=== PATIENT | male | born 1950 | race Caucasian/White ===

== ENCOUNTER 2017-03-13 06:17 | Day surgery (SDC) | payer OTHER ==
[~2017-03-13] VITALS: Ht 182.9 cm; Wt 78.6 kg
[2017-03-13 06:41] VITALS: BP 117/65; PULSE 92; RESP 18; TEMP 98; O2SAT 100
[2017-03-13] MEDS ORDERED: SPIR25TA PO (06:43)
[2017-03-13] MEDS ORDERED: DIGO1TAB59 PO (06:43)
[2017-03-13] MEDS ORDERED: BUME1TAB PO (06:43)
[2017-03-13] MEDS ORDERED: METO50TA11 PO (06:43)
[2017-03-13] MEDS ORDERED: HYDR500C PO (06:43)
[2017-03-13] MEDS ORDERED: XARE20TA PO (06:44)
[2017-03-13] MEDS ORDERED: VANCOMYCIN 1000 MG/NS 250 ML - implanted port/tunneled catheter IV SCH ×2 (07:00)
[2017-03-13] MEDS ORDERED: CHLORHEXIDINE GLUCONATE 2 % 1 PACK (2 CLOTHS) TOPICAL SCH (07:00)
[2017-03-13] MEDS ORDERED: POVIDONE IODINE 5% (ANTISEPSIS KIT) 4 APPLICATIONS EACH NARE SCH (07:00)
[2017-03-13] MEDS ORDERED: ceFAZolin 2 GM PREMIX 50 ML - implanted port/tunneled catheter insertion IV SCH (07:00)
[2017-03-13] MEDS ORDERED: fentaNYL CITRATE 250 MCG/5 ML AMP ONE (08:04)
[2017-03-13] MEDS ORDERED: MIDAZOLAM HCL 5 MG/5 ML VIAL ONE (08:04)
[2017-03-13] MEDS ORDERED: LIDOCAINE 1%/EPINEPHrine 1:100,000 SOLN 20 ML VIAL ONE (08:23)
--- NOTE | 2017-03-13 08:59 | PD.RAD ---
Post Procedure Progress Note Pre Procedure Diagnosis: (1) Thrombocytopenia Post Procedure Diagnosis: (1) Thrombocytopenia Procedure Date: Mar 13, 2017 Supervising Radiologist: Rajesh Garcia Proceduralist/Assist: Brayden Marc, RT(R), Other Estimated blood loss: < 5 ml Plan of Activity Patient to Unit: ROPU Patient Condition: Good Additional Comments: tip at [facility]. Ready for use. See PACS Report for procedural detail/treatment Rajesh Garcia MD Mar 13, 2017 08:59
[2017-03-13] MEDS ORDERED: SODIUM CHLORIDE 0.9% FLUSH 10 ML FLUSH IVF PRN (09:00)
[2017-03-13 09:15] VITALS: BP 117/65; PULSE 109; RESP 18; TEMP 97.8; O2SAT 100
[2017-03-13 09:30] VITALS: BP 124/59; PULSE 114; RESP 18; O2SAT 95
--- NOTE | 2017-03-13 09:59 | RADRPT ---
EXAM DATE/TIME: 03/13/2017 08:19 [facility] COMPARISON: No previous studies available for comparison. INDICATIONS : Patient with Myelofibrosis with essential thrombocytosis,CHELA-2 positive. MEDICAL HISTORY : 1.A- fib with RVR 2.splenomegaly 3. Leukocytosis 4.cataracts SURGICAL HISTORY : 1.Bone marrrow bx ENCOUNTER: Initial ACUITY: 4-6 months PAIN SCORE: 0/10 FLUORO TIME: 0.2 minutes IMAGE SERIES: 0 SEDATION TIME: 30 minutes ACCESS: Right internal jugular vein SEDATION: 1.) 2.5 mg midazolam (Versed) IV 2.) 125 mcg fentanyl (Sublimaze) IV Prophylactic antibiotics were administered with appropriate pre-procedure timing. Vancomycin within 2 hours of procedure, Ancef (or alternative) within 1 hour of procedure. DEVICE: 1. 8 Vietnamese single lumen Ang[employer] power port PROCEDURE : 1. Continuous pulse oximetry and EKG monitoring. 2. Intravenous conscious sedation. 3. Ultrasound guidance for venous access. 4. Fluoroscopic guided implantable central venous port placement. The patient was placed supine. The neck was prepped in sterile fashion. Full sterile technique was u sed, including cap, mask, sterile gloves and gown, and a large sterile sheet. Hand hygiene and 2% ch lorhexidine Betadine was utilized per protocol for cutaneous antisepsis with appropriate dry time for site. The skin and subcutaneous tissues were infiltrated with local anesthetic solution. Under direct ultrasound guidance, central venous access was accomplished in the targeted vessel. The ultrasound images depicting access guidance were stored and saved to PACS for permanent record. A s ubcutaneous pocket was created using blunt dissection. The port was introduced to the pocket. The c atheter tubing was fed through a subcutaneous tunnel to the venotomy site. The catheter tubing was c ut to a suitable length and then was introduced through a valved Peel-Away sheath and positioned with catheter tubing tip at the cavo-atrial junction level. The pocket incision was closed with subcutic ular Vicryl suture. Steri-Strips were applied. The port was flushed and locked with heparin solutio n per protocol. Sterile dressing was applied to the site. The patient tolerated the procedure well. Conscious sedation was performed with the prescribed dosages and duration as above in the presence of an independent trained radiology nurse to assist in the monitoring of the patient. EKG and oximetry remained stable throughout the procedure. The patient tolerated the procedure well and there were no complications. The patient was sent to post anesthesia recovery in stable condition. CONCLUSION: Uncomplicated ultrasound and fluoroscopic guided implanted central venous port catheter placement as described in detail above. An 8 Vietnamese Power port was placed. Rajesh Garcia MD on March 13, 2017 at 9:56 Board Certified Radiologist. This report was verified electronically.
[2017-03-13 10:00] VITALS: BP 96/54; PULSE 100; RESP 18; O2SAT 97
[2017-03-13 10:30] VITALS: BP 104/58; PULSE 100; RESP 18; O2SAT 97
== END 2017-03-13 10:44 | disposition home or self-care (01) ==
LOC: HROP 06:17 → HRIP 06:24 → HROP 10:44
PROVIDERS: ATTEND Internal Medicine
DX: D75.81 Myelofibrosis (principal); D47.3 Essential (hemorrhagic) thrombocythemia; I48.91 Unspecified atrial fibrillation
CPT/HCPCS: 36561; 76937; 77001; 99152; 99153; C1788; J0690; J1642; J2250; J3010; J3370; J7050

== ENCOUNTER 2017-09-16 14:30 | Inpatient (IN) | payer OTHER, MEDICARE ==
[~2017-09-16] VITALS: Ht 182.9 cm; Wt 74.1 kg
[2017-09-16] VITALS (9 sets, daily range): BP systolic 123–140; BP diastolic 56–67; PULSE 87–117; RESP 16–20; TEMP 99.1–102.3; O2SAT 94–100
[~2017-09-16 14:30] MED LIST: BUME1TAB PO; DIGO1TAB59 PO; HYDR500C PO; METO1TAB9 PO; SPIR25TA PO; XARE20TA PO
[2017-09-16] MEDS ORDERED: ASPI81CH6 CHEW (14:59)
[2017-09-16] MEDS ORDERED: SPIR25 PO (14:59)
--- NOTE | 2017-09-16 15:01 | PD ---
HPI Chief Complaint: Abdominal Pain Time Seen by Provider: 14:41 Travel History International Travel<30 days: No Contact w/Intl Traveler<30days: No Traveled to known affect area: No History of Present Illness HPI Patient is a 67-year-old male on chemotherapy with Dr. Martinez for myeloproliferative disorder on oral chemotherapy at home presents emergency department for abdominal discomfort and mild distention as well as some diarrhea. Patient also noticed that he was having fever at home, recently received a blood transfusion and has low platelets as well. Patient states is just generally not feeling well, took some Tylenol prior to arrival. States symptoms are mild, gradually worsening, context as above, not associated with any chest pain or shortness of breath PFSH Past Medical History Cancer: Yes (BONE MARROW, mpn ) Cardiovascular Problems: Yes (AFIB) Diabetes: No Endocrine: No Genitourinary: No Hepatitis: No Hiatal Hernia: No Immune Disorder: No Musculoskeletal: No Neurologic: No Psychiatric: No Reproductive: No Respiratory: No Thyroid Disease: No ?: Not Past Surgical History Abdominal Surgery: No AICD: No Cardiac Surgery: No Ear Surgery: No Endocrine Surgery: No Eye Surgery: Yes (CATARACT) Genitourinary Surgery: No Gynecologic Surgery: No Joint Replacement: No Oral Surgery: No Pacemaker: No Thoracic Surgery: No Other Surgery: Yes (port surgery ) Social History Alcohol Use: Yes (couple glasses wine a night) Tobacco Use: No Substance Use: No Allergies-Medications (Allergen,Severity, Reaction): Coded Allergies: No Known Allergies (Unverified Adverse Reaction, Unknown, 09/16/17) Reported Meds & Prescriptions Reported Meds & Active Scripts Active Reported [jakafi] 20 Mg PO EVERY OTHER DAY Aspirin Low Dose (Aspirin) 81 Mg Chew 81 Mg CHEW BID Aldactone (Spironolactone) 25 Mg Tab 25 Mg PO DAILY Digitek (Digoxin) 0.125 Mg Tab 0.125 Mg PO DAILY Review of Systems Except as stated in HPI: all other systems reviewed are Neg Physical Exam Narrative GENERAL: Well-developed well-nourished, quite pleasant in no obvious distress, pale. SKIN: Focused skin assessment warm/dry. HEAD: Atraumatic. Normocephalic. EYES: Pupils equal and round. No scleral icterus. No injection or drainage. ENT: No nasal bleeding or discharge. Mucous membranes pink and moist. NECK: Trachea midline. No JVD. CARDIOVASCULAR: Regular rate and rhythm. No murmur appreciated. RESPIRATORY: No accessory muscle use. Clear to auscultation. Breath sounds equal bilaterally. GASTROINTESTINAL: Abdomen soft, non-tender, perhaps mild distention, no rebound no percussive tenderness abdomen is fairly benign.. Hepatic and splenic margins not palpable. MUSCULOSKELETAL: No obvious deformities. No clubbing. No cyanosis. No edema. NEUROLOGICAL: Awake and alert. No obvious cranial nerve deficits. Motor grossly within normal limits. Normal speech. PSYCHIATRIC: Appropriate mood and affect; insight and judgment normal. Data Data Last Documented VS Vital Signs Date Time Temp Pulse Resp B/P (MAP) Pulse Ox O2 Delivery O2 Flow Rate FiO2 09/16/17 19:06 16 09/16/17 18:40 99.8 09/16/17 18:28 87 100 Nasal Cannula 2.00 Orders Orders Sepsis Workup Initiated (09/16/17 ) Complete Blood Count With Diff (09/16/17 14:42) Comprehensive Metabolic Panel (09/16/17 14:42) Prothrombin Time / Inr (Pt) (09/16/17 14:42) Act Partial Throm Time (Ptt) (09/16/17 14:42) Lactic Acid Sepsis Protocol (09/16/17 14:42) Magnesium (Mg) (09/16/17 14:42) Phosphorus (Po4) (09/16/17 14:42) Lipase (09/16/17 14:42) Ckmb (Isoenzyme) Profile (09/16/17 14:42) Troponin I (09/16/17 14:42) Urinalysis - C+S If Indicated (09/16/17 14:42) Blood Culture (09/16/17 14:42) Chest, Single Ap (09/16/17 14:42) Ecg Monitoring (09/16/17 14:42) Iv Access Insert/Monitor (09/16/17 14:42) Oximetry (09/16/17 14:42) Oxygen Administration (09/16/17 14:42) Digoxin (09/16/17 15:00) Influenzae A/B Antigen (09/16/17 15:00) Ct Abd/Pel W Iv Contrast(Rout) (09/16/17 ) Urine Culture (09/16/17 16:13) Iohexol 350 Inj (Omnipaque 350 Inj) (09/16/17 17:40) Cefepime Inj (Maxipime Inj) (09/16/17 19:45) Sodium Chlor 0.9% 1000 Ml Inj (Ns 1000 M (09/16/17 19:45) Admit Order (Ed Use Only) (09/16/17 ) Labs Laboratory Tests Test 09/16/17 15:10 09/16/17 16:13 White Blood Count 43.6 TH/MM3 Red Blood Count 2.55 MIL/MM3 Hemoglobin 8.7 GM/DL Hematocrit 26.0 % Mean Corpuscular Volume 102.1 FL Mean Corpuscular Hemoglobin 34.3 PG Mean Corpuscular Hemoglobin Concent 33.6 % Red Cell Distribution Width 20.1 % Platelet Count 43 TH/MM3 Mean Platelet Volume 11.0 FL Neutrophils (%) (Auto) 83.0 % Lymphocytes (%) (Auto) 10.4 % Monocytes (%) (Auto) 6.0 % Eosinophils (%) (Auto) 0.6 % Basophils (%) (Auto) 0.0 % Neutrophils # (Auto) 36.2 TH/MM3 Lymphocytes # (Auto) 4.5 TH/MM3 Monocytes # (Auto) 2.6 TH/MM3 Eosinophils # (Auto) 0.3 TH/MM3 Basophils # (Auto) 0.0 TH/MM3 CBC Comment AUTO DIFF Differential Total Cells Counted 100 Neutrophils % (Manual) 79 % Band Neutrophils % 4 % Lymphocytes % 7 % Monocytes % 3 % Neutrophils # (Manual) 39.2 TH/MM3 Myelocytes 6 % Promyelocytes 1 % Nucleated Red Blood Cells 19 /100 WBC Differential Comment FINAL DIFF MANUAL Platelet Estimate LOW Platelet Morphology Comment ENLARGED Polychromasia 2.1 % Prothrombin Time 12.1 SEC Prothromb Time International Ratio 1.2 RATIO Activated Partial Thromboplast Time 34.9 SEC Blood Urea Nitrogen 32 MG/DL Creatinine 1.24 MG/DL Random Glucose 118 MG/DL Total Protein 6.5 GM/DL Albumin 3.5 GM/DL Calcium Level 8.5 MG/DL Phosphorus Level 2.5 MG/DL Magnesium Level 2.1 MG/DL Alkaline Phosphatase 254 U/L Aspartate Amino Transf (AST/SGOT) 529 U/L Alanine Aminotransferase (ALT/SGPT) 29 U/L Total Bilirubin 1.9 MG/DL Sodium Level 136 MEQ/L Potassium Level 4.1 MEQ/L Chloride Level 105 MEQ/L Carbon Dioxide Level 22.0 MEQ/L Anion Gap 9 MEQ/L Estimat Glomerular Filtration Rate 58 ML/MIN Lactic Acid Level 1.5 mmol/L Total Creatine Kinase 76 U/L Troponin I 0.02 NG/ML Lipase 71 U/L Digoxin Level 1.0 NG/ML Urine Color DARK-RED Urine Turbidity HAZY Urine pH 6.0 Urine Specific [place] 1.016 Urine Protein 100 mg/dL Urine Glucose (UA) NEG mg/dL Urine Ketones 10 mg/dL Urine Occult Blood LARGE Urine Nitrite NEG Urine Bilirubin NEG Urine Urobilinogen LESS THAN 2.0 MG/DL Urine Leukocyte Esterase SMALL Urine WBC 17 /hpf Urine Squamous Epithelial Cells 2 /hpf Urine Amorphous Sediment OCC Urine Granular Casts 58 /lpf Microscopic Urinalysis Comment CULTURE INDICATED MDM Medical Decision Making Medical Screen Exam Complete: Yes Emergency Medical Condition: Yes Differential Diagnosis Sepsis, abdominal pain, diarrhea, dehydration, influenza, pneumonia. Narrative Course Patient roomed emergency department, appears chronically ill but nontoxic at this time, febrile on arrival to 102.3. Does have hematuria, CAT scan showing splenic infarct, AST elevation to 500 which is new for him. Discussed at length with Dr. Barrera, with the fever and the elevation in AST is possible that he has infarct of the liver as well recommended hepatitis panel admission for 48 hours of cefepime and blood cultures. Fever getting better, remained tachycardic and only so. Discussed with Dr. Liz for admission and she is agreeable. Patient does have Sirs, suspected bacteremia but lactic acid normal, this negates the necessity for aggressive fluid resuscitation. Diagnosis Primary Impression: SIRS (systemic inflammatory response syndrome) Additional Impression: Sepsis Admitting Information Admitting Physician Requests: Admit Condition: Stable Hernan Head MD Sep 16, 2017 15:01
[2017-09-16] MEDS ORDERED: jakafi PO (15:28)
[2017-09-16 15:41] LABS: INTERNATIONAL NORMALIZED RATIO 1.2 RATIO; PROTHROMBIN TIME - PATIENT 12.1 SEC (9.8-11.6)
[2017-09-16 15:44] LABS: AUTOMATED NEUTROPHIL # 36.2 TH/MM3 (1.8-7.7); EOSINOPHIL # 0.3 TH/MM3 (0-0.4); EOSINOPHIL % 0.6 % (0.0-4.0); HEMOGLOBIN 8.7 GM/DL (13.0-17.0); LYMPH % 10.4 % (9.0-44.0); LYMPHOCYTE # 4.5 TH/MM3 (1.0-4.8); MEAN CELL VOLUME 102.1 FL (80.0-100.0); MEAN CORPUSCULAR HEMOGLOBIN 34.3 PG (27.0-34.0); MEAN CORPUSCULAR HGB CONC 33.6 % (32.0-36.0); MONOCYTE # 2.6 TH/MM3 (0-0.9); PLATELET COUNT 43 TH/MM3 (150-450); RED BLOOD COUNT 2.55 MIL/MM3 (4.50-5.90); RED CELL DISTRIBUTION WIDTH 20.1 % (11.6-17.2); WHITE BLOOD COUNT 43.6 TH/MM3 (4.0-11.0)
[2017-09-16 16:01] LABS: ALBUMIN 3.5 GM/DL (3.4-5.0); ALKALINE PHOSPHATASE 254 U/L (45-117); ALT (GPT) 29 U/L (12-78); AST (GOT) 529 U/L (15-37); BLOOD UREA NITROGEN 32 MG/DL (7-18); CALCIUM 8.5 MG/DL (8.5-10.1); CHLORIDE 105 MEQ/L (98-107); CREATININE 1.24 MG/DL (0.60-1.30); GLOMERULAR FILTRATION RATE 58 ML/MIN (>89); GLUCOSE,RANDOM 118 MG/DL (74-106); LIPASE 71 U/L (73-393); MAGNESIUM 2.1 MG/DL (1.5-2.5); PHOSPHORUS 2.5 MG/DL (2.5-4.9); SODIUM (NA) 136 MEQ/L (136-145); TOTAL BILIRUBIN ADULT 1.9 MG/DL (0.2-1.0); TOTAL PROTEIN 6.5 GM/DL (6.4-8.2); TROPONIN I 0.02 NG/ML (0.02-0.05)
--- NOTE | 2017-09-16 16:12 | RADRPT ---
EXAM DATE/TIME: 09/16/2017 15:15 [facility] COMPARISON: No previous studies available for comparison. INDICATIONS : Lightheaded and fever symptoms. MEDICAL HISTORY : Carcinoma, bone marrow. SURGICAL HISTORY : Port placement. ENCOUNTER: Initial ACUITY: 1 day PAIN SCORE: 0/10 LOCATION: Bilateral chest FINDINGS: Single AP view of the chest. Right-sided [id number] in place. Linear atelectasis at the right uppe r lung zone. The lungs are otherwise clear. Cardiomediastinal silhouette within normal limits. No jb dence of pleural effusion or pneumothorax. CONCLUSION: Right upper lung atelectasis. No other acute cardiopulmonary disease identified. Mike Zhou MD on September 16, 2017 at 16:10 Board Certified Radiologist. This report was verified electronically.
[2017-09-16 16:28] LABS: BANDS 4 % (0-6); CORRECTED NUCLEATED RBC 19 /100 WBC (0-0); LYMPHOCYTES 7 % (9-44); MONOCYTES 3 % (0-8); MYELOCYTES 6 % (0-0); NEUTROPHIL # MANUAL DIFF 39.2 TH/MM3 (1.8-7.7); NUCLEATED RED BLOOD CELL 19 (0-0); POLYS (SEG NEUTROPHILS) 79 % (16-70); PROMYELOCYTES 1 % (0-0)
[2017-09-16 16:32] LABS: POLYCHROMASIA 2.1 % (0.0-1.9)
[2017-09-16 16:39] LABS: AMORPHOUS SEDIMENT, URINE OCC; BILIRUBIN, URINE NEG (NEG); BLOOD, URINE LARGE (NEG); GLUCOSE,URINE NEG (NEG); KETONE, URINE 10 mg/dL (NEG); NITRITE,URINE NEG (NEG); SQUAMOUS EPITHELIAL CELL URINE 2 /hpf (0-5); URINE LEUKOCYTE ESTERASE SMALL (NEG)
[2017-09-16 16:40] LABS: URINE COLOR DARK-RED (YELLW/STRAW)
[2017-09-16] MEDS ORDERED: IOHEXOL 350 MG/ML 10 ML VIAL (for RAD DIAG) IVCONTRAST ONE (17:40)
--- NOTE | 2017-09-16 18:25 | RADRPT ---
EXAM DATE/TIME: 09/16/2017 17:26 [facility] COMPARISON: No previous studies available for comparison. INDICATIONS : Fever, abdominal pain, and diarrhea. IV CONTRAST: 100 cc Omnipaque 350 (iohexol) IV ORAL CONTRAST: No oral contrast ingested. RADIATION DOSE: 7.04 CTDIvol (mGy) MEDICAL HISTORY : Cardiovascular disease. Carcinoma, bone marrow. SURGICAL HISTORY : None. ENCOUNTER: Initial ACUITY: 2 days PAIN SCALE: 5/10 LOCATION: abdomen TECHNIQUE: Volumetric scanning of the abdomen and pelvis was performed. Using automated exposure control and ad justment of the mA and/or kV according to patient size, radiation dose was kept as low as reasonably achievable to obtain optimal diagnostic quality images. DICOM format image data is available electro nically for review and comparison. FINDINGS: LOWER LUNGS: The visualized lower lungs are clear. LIVER: Hepatomegaly measuring 20 cm in craniocaudal dimension. No focal mass. Gallbladder unremarkable. SPLEEN: Marked splenomegaly with the spleen measuring 21 cm in craniocaudal dimension. There is heterogeneous enhancement of the spleen with large areas of relative hypodensity. This finding likely represents l arge areas of splenic infarct. Adjacent edema is seen in the fat. PANCREAS: Within normal limits. KIDNEYS: Normal in size and shape. There is no mass, stone or hydronephrosis. ADRENAL GLANDS: Within normal limits. VASCULAR: There is no aortic aneurysm. BOWEL/MESENTERY: No evidence of bowel dilatation. No free air. Small amount of free fluid. Appendix within normal limi ts. ABDOMINAL WALL: Within normal limits. RETROPERITONEUM: There is no lymphadenopathy. BLADDER: No wall thickening or mass. REPRODUCTIVE: Within normal limits. INGUINAL: There is no lymphadenopathy or hernia. MUSCULOSKELETAL: Within normal limits for patient age. CONCLUSION: 1. Marked splenomegaly with large contiguous areas of hypodensity in the spleen likely representing l arge areas of infarct. Splenic vein is patent. Splenic artery is patent. 2. Small amount of free fluid. 3. Hepatomegaly. Mike Zhou MD on September 16, 2017 at 18:16 Board Certified Radiologist. This report was verified electronically.
[2017-09-16] MEDS ORDERED: CEFEPIME INJ 1,000 MG in SODIUM CHLORIDE 0.9% INJ 100 ML IV ONE (19:45)
[2017-09-16] MEDS ORDERED: SODIUM CHLOR 0.9% 1000 ML INJ 1,000 ML IV ONE (20:00)
[2017-09-16] MEDS ORDERED: SENNOSIDES 8.6 MG TAB PO PRN (20:00)
[2017-09-16] MEDS ORDERED: NALOXONE HCL 0.4 MG/ML AMP IV PUSH PRN (20:00)
[2017-09-16] MEDS ORDERED: MAGNESIUM HYDROXIDE SUSP 30 ML CUP PO PRN (20:00)
[2017-09-16] MEDS ORDERED: ACETAMINOPHEN 325 MG TAB PO PRN (20:00)
[2017-09-16] MEDS ORDERED: BISACODYL 10 MG SUPP RECTAL PRN (20:00)
[2017-09-16] MEDS ORDERED: SODIUM CHLORIDE 0.9% FLUSH 10 ML FLUSH IV FLUSH PRN (20:00)
[2017-09-16] MEDS ORDERED: ONDANSETRON HCL 4 MG/2 ML VIAL IVP PRN (20:00)
--- NOTE | 2017-09-16 20:31 | HHI.HP ---
[facility] Primary Care Physician Non-Staff Admission Diagnosis SIRS/Suspected Bacteremia. Diagnoses: Travel History International Travel<30 Days: No Contact w/Intl Traveler <30 Da: No Traveled to Known Affected Are: No History of Present Illness 67-year-old male with a past medical history significant for myeloproliferative disorder followed by Dr. Cheema, thrombocytopenia and atrial fibrillation presents to the emergency department with hematuria and a fever to 103 that began this morning. The patient reports a 2 day history of anorexia and left- sided abdominal pain since Sunday. Patient has a history of splenomegaly. He also has a newly elevated AST of 529. UA consistent with urinary tract infection. CT of the abdomen/pelvis showed splenomegaly with large area of infarct with patent splenic vein/artery. Also shows hepatomegaly. Chest x-ray with right upper lung atelectasis. WBC 43.6 which is baseline for the patient. Platelets 43. Review of Systems Positive fever Denies blurry vision, otorrhea, rhinorrhea Denies sore throat and cough No chest pain, palpitations, shortness of breath Positive abdominal pain Denies constipation/diarrhea/nausea/vomiting Denies muscle pain/weakness No rashes Past Family Social History Past Medical History Atrial fibrillation, was on Xarelto until 3 weeks ago when this was stopped for his thrombocytopenia Myeloproliferative disorder Splenomegaly Past Surgical History Cataract surgery Port placement Reported Medications Reported Meds & Active Scripts Active Reported [jakafi] 20 Mg PO EVERY OTHER DAY Aspirin Low Dose (Aspirin) 81 Mg Chew 81 Mg CHEW BID Aldactone (Spironolactone) 25 Mg Tab 25 Mg PO DAILY Digitek (Digoxin) 0.125 Mg Tab 0.125 Mg PO DAILY Allergies: Coded Allergies: No Known Allergies (Unverified Adverse Reaction, Unknown, 09/16/17) Family History Mother with diabetes mellitus. Social History Occasional alcohol. Denies tobacco, illicit drugs. Physical Exam Vital Signs Vital Signs Date Time Temp Pulse Resp B/P (MAP) Pulse Ox O2 Delivery O2 Flow Rate FiO2 09/16/17 20:02 117 16 131/60 (83) 95 Room Air 09/16/17 19:06 16 09/16/17 18:40 99.8 09/16/17 18:28 87 20 123/56 (78) 100 Nasal Cannula 2.00 09/16/17 18:00 100 20 139/67 (91) 96 Room Air 09/16/17 15:54 116 20 140/63 (88) 95 Room Air 09/16/17 14:50 96 Room Air 09/16/17 14:50 96 Room Air 09/16/17 14:32 102.3 107 16 134/62 (86) 95 Physical Exam GENERAL: male sitting up in bed SKIN: No rashes, ecchymoses or lesions. Cool and dry. HEAD: Atraumatic. Normocephalic. No temporal or scalp tenderness. EYES: Pupils equal round and reactive. Extraocular motions intact. No scleral icterus. No injection or drainage. ENT: Nose without bleeding, purulent drainage or septal hematoma. Throat without erythema, tonsillar hypertrophy or exudate. Uvula midline. Airway patent. NECK: Trachea midline. No JVD or lymphadenopathy. Supple, nontender, no meningeal signs. CARDIOVASCULAR: Irregularly irregular rate. Tachycardic. No murmurs/rubs/ gallops. RESPIRATORY: Clear to auscultation. Breath sounds equal bilaterally. No wheezes , rales, or rhonchi. GASTROINTESTINAL: Abdomen soft, non-tender, nondistended. No hepato-splenomegaly , or palpable masses. No guarding. MUSCULOSKELETAL: Extremities without clubbing, cyanosis, or edema. No joint tenderness, effusion, or edema noted. No calf tenderness. NEUROLOGICAL: Awake and alert. Cranial nerves II through XII intact. Motor and sensory grossly within normal limits. Normal speech. Laboratory Laboratory Tests Test 09/16/17 15:10 09/16/17 16:13 White Blood Count 43.6 Red Blood Count 2.55 Hemoglobin 8.7 Hematocrit 26.0 Mean Corpuscular Volume 102.1 Mean Corpuscular Hemoglobin 34.3 Mean Corpuscular Hemoglobin Concent 33.6 Red Cell Distribution Width 20.1 Platelet Count 43 Mean Platelet Volume 11.0 Neutrophils (%) (Auto) 83.0 Lymphocytes (%) (Auto) 10.4 Monocytes (%) (Auto) 6.0 Eosinophils (%) (Auto) 0.6 Basophils (%) (Auto) 0.0 Neutrophils # (Auto) 36.2 Lymphocytes # (Auto) 4.5 Monocytes # (Auto) 2.6 Eosinophils # (Auto) 0.3 Basophils # (Auto) 0.0 CBC Comment AUTO DIFF Differential Total Cells Counted 100 Neutrophils % (Manual) 79 Band Neutrophils % 4 Lymphocytes % 7 Monocytes % 3 Neutrophils # (Manual) 39.2 Myelocytes 6 Promyelocytes 1 Nucleated Red Blood Cells 19 Differential Comment FINAL DIFF MANUAL Platelet Estimate LOW Platelet Morphology Comment ENLARGED Polychromasia 2.1 Prothrombin Time 12.1 Prothromb Time International Ratio 1.2 Activated Partial Thromboplast Time 34.9 Blood Urea Nitrogen 32 Creatinine 1.24 Random Glucose 118 Total Protein 6.5 Albumin 3.5 Calcium Level 8.5 Phosphorus Level 2.5 Magnesium Level 2.1 Alkaline Phosphatase 254 Aspartate Amino Transf (AST/SGOT) 529 Alanine Aminotransferase (ALT/SGPT) 29 Total Bilirubin 1.9 Sodium Level 136 Potassium Level 4.1 Chloride Level 105 Carbon Dioxide Level 22.0 Anion Gap 9 Estimat Glomerular Filtration Rate 58 Lactic Acid Level 1.5 Total Creatine Kinase 76 Troponin I 0.02 Lipase 71 Digoxin Level 1.0 Urine Color DARK-RED Urine Turbidity HAZY Urine pH 6.0 Urine Specific [place] 1.016 Urine Protein 100 Urine Glucose (UA) NEG Urine Ketones 10 Urine Occult Blood LARGE Urine Nitrite NEG Urine Bilirubin NEG Urine Urobilinogen LESS THAN 2.0 Urine Leukocyte Esterase SMALL Urine WBC 17 Urine Squamous Epithelial Cells 2 Urine Amorphous Sediment OCC Urine Granular Casts 58 Microscopic Urinalysis Comment CULTURE INDICATED Date/Time Source Procedure Growth Status 09/16/17 15:15 Blood Peripheral Aerobic Blood Culture Pending Received 09/16/17 15:15 Blood Peripheral Anaerobic Blood Culture Pending Received 09/16/17 15:24 Nasal Washing Influenza Types A,B Antigen (KYLAH) - Final NEGATIVE FOR FLU A AND B ANTIGEN.... Complete 09/16/17 16:13 Urine Clean Catch Urine Culture Pending Received Result Diagram: 09/16/17 1510 09/16/17 1510 Caprini VTE Risk Assessment Caprini VTE Risk Assessment: Mod/High Risk (score >= 2) Caprini Risk Assessment Model Point Value = 1 Point Value = 2 Point Value = 3 Point Value = 5 Age 41-60 Minor surgery BMI > 25 kg/m2 Swollen legs Varicose veins or History of unexplained or recurrent spontaneous Oral contraceptives or hormone replacement Sepsis (< 1 month) Serious lung disease, including pneumonia (< 1 month) Abnormal pulmonary function Acute myocardial infarction Congestive heart failure (< 1 month) History of inflammatory bowel disease Medical patient at bed rest Age 61-74 Arthroscopic surgery Major open surgery (> 45 min) Laparoscopic surgery (> 45 min) Malignancy Confined to bed (> 72 hours) Immobilizing plaster cast Central venous access Age >= 75 History of VTE Family history of VTE Factor V Leiden Prothrombin [id number] Lupus anticoagulant Anticardiolipin antibodies Elevated serum homocysteine Heparin-induced thrombocytopenia Other congenital or acquired thrombophilia Stroke (< 1 month) Elective arthroplasty Hip, pelvis, or leg fracture Acute spinal cord injury (< 1 month) Prophylaxis Regimen Total Risk Factor Score Risk Level Prophylaxis Regimen 0-1 Low Early ambulation 2 Moderate Order ONE of the following: *Sequential Compression Device (SCD) *Heparin 5000 units SQ BID 3-4 Higher Order ONE of the following medications: *Heparin 5000 units SQ TID *Enoxaparin/Lovenox 40 mg SQ daily (WT < 150 kg, CrCl > 30 mL/min) *Enoxaparin/Lovenox 30 mg SQ daily (WT < 150 kg, CrCl > 10-29 mL/min) *Enoxaparin/Lovenox 30 mg SQ BID (WT < 150 kg, CrCl > 30 mL/min) AND/OR *Sequential Compression Device (SCD) 5 or more Highest Order ONE of the following medications: *Heparin 5000 units SQ TID (Preferred with Epidurals) *Enoxaparin/Lovenox 40 mg SQ daily (WT < 150 kg, CrCl > 30 mL/min) *Enoxaparin/Lovenox 30 mg SQ daily (WT < 150 kg, CrCl > 10-29 mL/min) *Enoxaparin/Lovenox 30 mg SQ BID (WT < 150 kg, CrCl > 30 mL/min) AND *Sequential Compression Device (SCD) Assessment and Plan Assessment and Plan Assessment/plan: 1. SIRS/suspected bacteremia/UTI in the setting of myeloproliferative disorder Blood/urine cultures pending Cefepime Oncology consulted, appreciate recommendations Monitor for signs of sepsis 2. Transaminitis AST, T Bili elevated from baseline CT of the abdomen/pelvis shows hepatomegaly Hepatitis profile pending Follow CMP 3. Atrial fibrillation Patient followed by Dr. Blankenship in [place] Stopped Xarelto 3 weeks ago for thrombocytopenia Continue digoxin FEN Heart healthy diet Electrolytes: Monitor and replete when necessary Holding pharmacologic anticoagulation for thrombocytopenia Case discussed with ER physician at length Physician Certification 2 Midnight Certification Type: Admission for Inpatient Services Order for Inpatient Services The services are ordered in accordance with Medicare regulations or non- Medicare payer requirements, as applicable. In the case of services not specified as inpatient-only, they are appropriately provided as inpatient services in accordance with the 2-midnight benchmark. Estimated LOS (days): 2 2 days is the estimated time the patient will need to remain in the hospital, assuming treatment plan goals are met and no additional complications. Post-Hospital Plan: Not yet determined Colleen Liz MD Sep 16, 2017 20:31
[2017-09-16] MEDS: SODIUM CHLORIDE 0.9% FLUSH 10 ML FLUSH IV FLUSH SCH (21:00)
[2017-09-16] MEDS ORDERED: ASPIRIN 81 MG CHEW TAB CHEW SCH (21:00)
[2017-09-17] VITALS (18 sets, daily range): BP systolic 107–128; BP diastolic 54–79; PULSE 101–122; RESP 18–21; TEMP 97.6–99.1; O2SAT 95–98
[2017-09-17] MEDS: CEFEPIME INJ 2,000 MG in SODIUM CHLORIDE 0.9% INJ 100 ML IV SCH ×3 (03:14→21:38)
[2017-09-17 05:58] LABS: MEAN CELL VOLUME 101.4 FL (80.0-100.0); MEAN CORPUSCULAR HEMOGLOBIN 33.2 PG (27.0-34.0); MEAN CORPUSCULAR HGB CONC 32.7 % (32.0-36.0); MEAN PLATELET VOLUME 11.2 FL (7.0-11.0); PLATELET COUNT 47 TH/MM3 (150-450); RED BLOOD COUNT 1.84 MIL/MM3 (4.50-5.90); RED CELL DISTRIBUTION WIDTH 20.3 % (11.6-17.2); WHITE BLOOD COUNT 42.5 TH/MM3 (4.0-11.0)
[2017-09-17 06:19] LABS: ALT (GPT) 25 U/L (12-78)
[2017-09-17 06:21] LABS: ALKALINE PHOSPHATASE 205 U/L (45-117); TOTAL BILIRUBIN ADULT 1.3 MG/DL (0.2-1.0)
[2017-09-17 06:25] LABS: AST (GOT) 464 U/L (15-37); BICARBONATE 21.9 MEQ/L (21.0-32.0); BLOOD UREA NITROGEN 36 MG/DL (7-18); CHLORIDE 109 MEQ/L (98-107); CREATININE 1.32 MG/DL (0.60-1.30); GLOMERULAR FILTRATION RATE 54 ML/MIN (>89); GLUCOSE,RANDOM 105 MG/DL (74-106); SODIUM (NA) 139 MEQ/L (136-145)
[2017-09-17 06:31] LABS: HEMATOCRIT 18.6 % (39.0-51.0); HEMOGLOBIN 6.1 GM/DL (13.0-17.0)
[2017-09-17 07:21] LABS: BANDS 3 % (0-6); CORRECTED NUCLEATED RBC 7 /100 WBC (0-0); LYMPHOCYTES 1 % (9-44); METAMYELOCYTES 1 % (0-1); MONOCYTES 4 % (0-8); MYELOCYTES 5 % (0-0); NEUTROPHIL # MANUAL DIFF 40.4 TH/MM3 (1.8-7.7); NUCLEATED RED BLOOD CELL 7 (0-0); POLYS (SEG NEUTROPHILS) 86 % (16-70); TOXIC VACUOLATION PRESENT (NONE SEEN)
[2017-09-17 07:22] LABS: TOXIC GRANULATION 2+ (NORMAL)
[2017-09-17] MEDS ORDERED: SODIUM CHLOR 0.9% 250 ML INJ 250 ML IV ONE (07:45)
[2017-09-17] MEDS: DIGOXIN 0.125 MG TAB PO SCH (08:02)
[2017-09-17] MEDS: SODIUM CHLORIDE 0.9% FLUSH 10 ML FLUSH IV FLUSH SCH ×2 (08:02→21:39)
[2017-09-17] MEDS: SPIRONOLACTONE 25 MG TAB PO SCH ×2 (08:03→08:13)
--- NOTE | 2017-09-17 10:47 | HHI.PR ---
Subjective Remarks Follow up anemia, hematuria. The patient states that his abdominal/flank pain has improved. Still continues to have blood in his urine. Denies chest pain or dyspnea. No nausea or vomiting. Objective Vitals Vital Signs Date Time Temp Pulse Resp B/P (MAP) Pulse Ox O2 Delivery O2 Flow Rate FiO2 09/17/17 09:15 113 09/17/17 08:00 98.0 103 20 119/61 (80) 98 09/17/17 07:49 98 21 09/17/17 04:00 97.6 101 18 124/65 (84) 95 09/17/17 00:00 98.7 101 20 124/71 (88) 98 09/16/17 22:15 100 09/16/17 21:01 09/16/17 20:50 99.1 116 18 127/58 (81) 94 09/16/17 20:02 117 16 131/60 (83) 95 Room Air 09/16/17 19:06 16 09/16/17 18:40 99.8 09/16/17 18:28 87 20 123/56 (78) 100 Nasal Cannula 2.00 09/16/17 18:00 100 20 139/67 (91) 96 Room Air 09/16/17 15:54 116 20 140/63 (88) 95 Room Air 09/16/17 14:50 96 Room Air 09/16/17 14:50 96 Room Air 09/16/17 14:32 102.3 107 16 134/62 (86) 95 I/O 09/16/17 09/16/17 09/16/17 09/17/17 09/17/17 09/17/17 07:00 15:00 23:00 07:00 15:00 23:00 Intake Total 100 ml 1000 ml Output Total 1400 ml Balance 100 ml -400 ml Intake IV Total 100 ml 1000 ml Output Urine Total 1400 ml Result Diagram: 09/17/17 0530 09/17/17 0530 Imaging Last Impressions Chest X-Ray 09/16/17 1442 Signed Impressions: Service Date/Time: Saturday, September 16, 2017 15:15 - CONCLUSION: Right upper lung atelectasis. No other acute cardiopulmonary disease identified. Mike Zhou MD Abdomen/Pelvis CT 09/16/17 0000 Signed Impressions: Service Date/Time: Saturday, September 16, 2017 17:26 - CONCLUSION: 1. Marked splenomegaly with large contiguous areas of hypodensity in the spleen likely representing large areas of infarct. Splenic vein is patent. Splenic artery is patent. 2. Small amount of free fluid. 3. Hepatomegaly. Mike Zhou MD Objective Remarks General: No acute distress. Heart: Regular rate and rhythm. No murmur. Lungs: Clear to auscultation bilaterally. No wheezes, rales, or rhonchi. Breathing is nonlabored. Abdomen: Soft, nontender, nondistended. Extremities: No lower extremity edema. Psych: Alert and oriented. Procedures None Urinary Catheter: No Vascular Central Line Catheter: No A/P Problem List: (1) Anemia ICD Code: D64.9 - Anemia, unspecified (2) Myeloproliferative disorder ICD Code: D47.1 - Chronic myeloproliferative disease (3) Hematuria ICD Code: R31.9 - Hematuria, unspecified (4) Sepsis ICD Code: A41.9 - Sepsis, unspecified organism Status: Acute (5) Thrombocytopenia ICD Code: D69.6 - Thrombocytopenia, unspecified Status: Acute Assessment and Plan 1. Severe anemia: Patient has myeloproliferative disorder. Anemia is acutely worsened, likely secondary to hematuria. Transfuse 1 unit PRBCs. Hematology consult pending. 2. Transaminitis: CT of the abdomen/pelvis shows hepatomegaly. Monitor labs. 3. Atrial fibrillation: Xarelto discontinued 3-4 weeks ago secondary to thrombocytopenia. Continue digoxin. 4. UTI: Blood and urine cultures are pending. Continue antibiotics. 5. Sepsis: Source is UTI. Patient presented with leukocytosis, fever, tachycardia. Continue antibiotics. Cultures are pending. 6. Hematuria: Consult urology. 7. DVT prophylaxis: SCDsCHAIM. Avoid chemical prophylaxis secondary to thrombocytopenia, bleeding. Dominguez Naik MD Sep 17, 2017 10:47
--- NOTE | 2017-09-17 15:22 | MB ---
cc: EDU SANTOS MD DATE OF CONSULTATION 09/17/2017 REASON FOR CONSULTATION Gross hematuria. HISTORY OF PRESENT ILLNESS The patient is a 67-year-old male with history of myeloproliferative disorder who presented to the emergency department yesterday with gross hematuria and a fever of 103 as well as left flank pain. CT of the abdomen and pelvis with and without contrast was done in the ER which showed splenomegaly with a large area of infarct in the splenic vein and artery. However, the kidneys appear to be normal with no evidence of hydronephrosis or stones. He did have a UA done which was possibly consistent for urinary tract infection. He was then admitted for IV antibiotics and Urology was consulted. The patient does have some mild lower urinary tract symptoms including urgency, frequency and nocturia. Currently his flank pain has resolved. He denies history of kidney stones or urinary tract infections in the past. Denies history of prostate cancer. He does take Xarelto for his atrial fibrillation but it was stopped three weeks ago due to his thrombocytopenia. He currently denies nausea and vomiting as well. He has had blood in his urine in the past but that was when his blood was chelated for blood transfusions. The blood yesterday started as Merlot colored and progressed throughout the day. He continued to have a little bit of blood in his urine this morning but, as mentioned above, his pain had resolved. REVIEW OF SYSTEMS See HPI, otherwise all systems reviewed were negative. PAST MEDICAL HISTORY Significant for - 1. Atrial fibrillation. 2. Myeloproliferative disorder. 3. Splenomegaly. PAST SURGICAL HISTORY 1. Cataract surgery. 2. Port placement. C 3. Circumcision. REPORTED MEDICATIONS Xarelto. Aldactone. Aspirin. Digoxin. ALLERGIES No known drug allergies. FAMILY HISTORY Mother has diabetes. Denies urolithiasis in other family members. SOCIAL HISTORY Occasional alcohol. Denies illicit drugs or tobacco. He is . PHYSICAL EXAMINATION VITAL SIGNS: Temperature 98.1, pulse 116, respiratory rate 21, BP 190/61, sating at 96% on room air. GENERAL: He is alert, oriented x3, in no apparent distress. A pleasant, cooperative gentleman who appears his stated age. HEAD: Normocephalic, atraumatic. EYES: No scleral icterus. Extraocular muscles intact. NECK: Supple. Trachea is midline. No JVD. EARS: External hearing is normal. NOSE: External nares are normal. LUNGS: Clear to auscultation bilaterally. No wheezes, rales or rhonchi. HEART: Regular rhythm. No murmurs, gallops or rubs. ABDOMEN: Soft, obese, non-tender, non-distended. Positive bowel sounds. GENITOURINARY: No CVA tenderness bilaterally. His penis is circumcised. Testes are descended bilaterally. Normal size and consistency, without mass. RECTAL EXAM: Not indicated at this time. EXTREMITIES: Nontender. No clubbing, cyanosis or edema. PSYCH: Normal affect. Answers questions appropriately. NEUROLOGIC: Cranial II-XII intact. Strength 4/5 in all four extremities. SKIN: No ulcers or rashes. LABORATORY DATA White count 42.5, hemoglobin 6.1, hematocrit 18.6, platelet count 47. Sodium 139, potassium 4.0, chloride 109, bicarb 21.9, creatinine 132, BUN 36. Urine showed large blood, small leukocyte esterase. Culture currently pending. IMAGING STUDIES CT of abdomen and pelvis with and without contrast. Images reviewed. Read through radiologist report. 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 ASSESSMENT AND PLAN The patient is a 67-year-old male with a history of myeloproliferative disorder who was admitted with gross hematuria, fever and left flank pain. PLAN 1. Would continue IV antibiotics pending culture. 2. If urine culture is negative, then he likely would need a cystoscopy which can be done as an outpatient to complete hematuria workup. Thank you for this consultation. Please call if any questions. Edu Santos MD EMDes/GREGORIA /1:58 PM /2:47 PM
--- NOTE | 2017-09-17 16:21 | MB ---
cc: BRANDON KENNEDY DATE OF CONSULTATION: September 17, 2017 REASON FOR CONSULTATION Patient with a history of myeloproliferative neoplasm, who presents to the emergency room with fevers, hematuria and severe weakness. HISTORY OF PRESENT ILLNESS Mr. Maldonado is a 67-year-old male who has a diagnosis of myeloproliferative neoplasm. 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 He is currently being treated with Jakafi. His line of treatment was Hydrea. He has large spleen, on initial presentation the spleen size is 22.5 cm. He had thrombocytosis with platelet count between 600-700,000. He has been anemic and has required packed red blood cell transfusions on a regular basis. He has a history of iron overload. He recently presented to the oncology clinic and was found to have decreasing platelet count. His Jakafi dosing was reduced to 5 mg twice a day. He now presents to the emergency department with left upper quadrant abdominal pain, fever of 103 and feeling very weak. In the emergency room he was found to be severely anemic with hemoglobin of 6.1. His platelet count was 47,000. His white blood cell count was 42.5. He was having gross hematuria. The patient was started on antibiotics consisting of cefepime. UA was obtained which showed positive leukocyte esterase and urine cultures are pending. The patient has been transfused 1 unit of packed red blood cells. Today he feels somewhat better, his pain in the left abdomen has resolved. A CT scan of the abdomen and pelvis revealed marked splenomegaly with hypodensity in the spleen resulting from an infarct, the splenic vein was patent. The splenic artery was patent. He does have hepatomegaly. He has not had any fevers since his hospital admission. He remains tachycardic with a pulse rate in the 100s. Blood pressure has been stable 114/59 and his oxygen saturations are good at 96% on room air. His hematuria is resolving. REVIEW OF SYSTEMS A comprehensive review of systems was completed which is negative except as described in the HPI. PAST MEDICAL HISTORY 1. Myeloproliferative neoplasm. 2. CHELA-2 positive disease. 3. Atrial fibrillation. 4. Splenomegaly. 5. Hypertension. 6. Chronic lower extremity edema. PAST SURGICAL HISTORY Cataract surgery, port placement. MEDICATIONS 1. Jakafi 5 mg p.o. b.i.d. 2. Aspirin 81 mg daily. 3. Aldactone 25 mg p.o. daily. 4. Digitek 0.125 mg p.o. daily. ALLERGIES NO KNOWN DRUG ALLERGIES. FAMILY HISTORY Family history was reviewed. Significant for diabetes and otherwise noncontributory to this admission. SOCIAL HISTORY and lives with his . He does not smoke cigarettes. He occasionally drinks alcohol. No illicit drug use. PHYSICAL EXAMINATION VITAL SIGNS: Blood pressure is 114/59, pulse is in the 100s, temperature is 98.1, O2 sats are 96% on room air. GENERAL: Chronically ill-appearing male, in no apparent distress. HEENT: Pupils are equal, round, reactive to light. EOMI. No oral thrush. No oral lesions. NECK: Neck is supple. No JVD, no bruits. No lymphadenopathy. CHEST: Chest is clear to auscultation bilaterally. CARDIAC: S1-S2, regular rate and rhythm. ABDOMEN: Abdomen is soft. He has mild tenderness in the left upper quadrant. Bowel sounds are present. No rebound or guarding. EXTREMITIES: 1+ lower extremity edema. No cyanosis. 2+ pulses. NEURO: No focal deficits. PSYCHIATRIC: Mood and affect is appropriate. LABORATORY DATA WBC is 42.5, hemoglobin is 6.1, platelet count of 47. Serum chemistries show sodium 139, potassium 4, chloride 109, CO2 is 21.9, BUN 36, creatinine is 1.32, calcium of 8, total bilirubin is 1.3, AST 64, ALT is 25, alkaline phosphatase is 205, total protein is 6, albumin is 3, lipase is 7. IMAGING STUDIES CT of the abdomen and pelvis was reviewed. This showed marked splenomegaly with contiguous area of hypodensity in the spleen likely representing a large area of infarct, splenic vein is patent, splenic artery is patent. ASSESSMENT/PLAN This is a 67-year-old male who has a history of myeloproliferative neoplasm, who presents to the emergency room with weakness, hematuria and fever. 1. Severe anemia secondary to underlying myeloproliferative neoplasm. He is transfusion dependent. I agree with transfusion with 1 unit of packed red blood cells. Will monitor him overnight. We may have to give him another unit. 2. Hematuria in the setting of thrombocytopenia while being on aspirin and acute renal failure. We will hold off on aspirin. I advised him to not take any NSAIDs. Urology has been consulted. However, I think that further workup can be done in the outpatient setting, especially if his hematuria resolves over the next 24 hours and the patient would like to go home as well. 3. Thrombocytopenia secondary to myeloproliferative disorder. Hold Jakafi. 4. Fevers and splenic infarct. He cannot be anticoagulated right now because of thrombocytopenia and hematuria. Will hold off on aspirin. I will consider restarting ASA in the outpatient setting. 5. Acute renal failure likely due to prerenal causes, severe anemia etc. Will closely monitor his creatinine. 6. Elevated Liver Function-possibly due to Jakafi due to Jakafi check Hep Panel. We will monitor this patient for another 24 hours, if he remains afebrile and he does not have any abdominal pain and his blood cultures are negative, we can consider discharging the patient with oral Levaquin (5 days) . We will have him return to our oncology clinic next week for labs. Thank you for allowing me to participate in the care of this patient. I will continue to follow this patient along. This case was discussed with Dr. Dominguez Naik. MD JONATHON Murillo/CHACHA /3:02 PM /3:32 PM KIMMIE
[2017-09-17 16:59] LABS: AUTOMATED NEUTROPHIL # 36.6 TH/MM3 (1.8-7.7); BASOPHIL # 0.2 TH/MM3 (0-0.2); BASOPHIL % 0.5 % (0.0-2.0); EOSINOPHIL # 0.5 TH/MM3 (0-0.4); EOSINOPHIL % 1.4 % (0.0-4.0); LYMPH % 2.1 % (9.0-44.0); LYMPHOCYTE # 0.8 TH/MM3 (1.0-4.8); MEAN CELL VOLUME 98.6 FL (80.0-100.0); MEAN CORPUSCULAR HEMOGLOBIN 32.6 PG (27.0-34.0); MEAN CORPUSCULAR HGB CONC 33.1 % (32.0-36.0); MEAN PLATELET VOLUME 10.9 FL (7.0-11.0); MONO % 4.9 % (0.0-8.0); NEUT % 91.1 % (16.0-70.0); PLATELET COUNT 55 TH/MM3 (150-450); RED BLOOD COUNT 2.13 MIL/MM3 (4.50-5.90); RED CELL DISTRIBUTION WIDTH 20.4 % (11.6-17.2); WHITE BLOOD COUNT 40.2 TH/MM3 (4.0-11.0)
[2017-09-17 17:08] LABS: HEMOGLOBIN 6.9 GM/DL (13.0-17.0)
[2017-09-17 17:25] LABS: BANDS 10 % (0-6); CORRECTED NUCLEATED RBC 4 /100 WBC (0-0); METAMYELOCYTES 2 % (0-1); MONOCYTES 1 % (0-8); MYELOCYTES 4 % (0-0); NEUTROPHIL # MANUAL DIFF 39.4 TH/MM3 (1.8-7.7); NUCLEATED RED BLOOD CELL 4 (0-0); POLYS (SEG NEUTROPHILS) 81 % (16-70); PROMYELOCYTES 1 % (0-0)
[2017-09-17 17:26] LABS: TOXIC GRANULATION 1+ (NORMAL); TOXIC VACUOLATION PRESENT (NONE SEEN)
[2017-09-17] MEDS ORDERED: ACETAMINOPHEN 325 MG TAB PO ONE (19:15)
[2017-09-17] MEDS ORDERED: diphenhydrAMINE HCL 25 MG CAP PO ONE (19:15)
[2017-09-18] VITALS (15 sets, daily range): BP systolic 101–123; BP diastolic 51–65; PULSE 96–126; RESP 16–20; TEMP 98–99.7; O2SAT 94–97
[2017-09-18] MEDS: CEFEPIME INJ 2,000 MG in SODIUM CHLORIDE 0.9% INJ 100 ML IV SCH ×3 (04:55→21:13)
[2017-09-18] MEDS: SPIRONOLACTONE 25 MG TAB PO SCH (09:00)
[2017-09-18] MEDS: DIGOXIN 0.125 MG TAB PO SCH (09:11)
[2017-09-18] MEDS: SODIUM CHLORIDE 0.9% FLUSH 10 ML FLUSH IV FLUSH SCH ×2 (09:12→21:14)
[2017-09-18] MEDS ORDERED: diphenhydrAMINE HCL 2%/ZINC ACETATE 0.1% CREAM 30 APPLIC/30 GM TUBE TOPICAL PRN (09:45)
--- NOTE | 2017-09-18 10:01 | HHI.PR ---
Subjective Remarks Follow up anemia, rash. Patient's rash has spread down his arm and is involving his left hand. Still pruritic, not painful. No other complaints at this time. Hematuria has resolved. Objective Vitals Vital Signs Date Time Temp Pulse Resp B/P (MAP) Pulse Ox O2 Delivery O2 Flow Rate FiO2 09/18/17 08:00 98.7 115 20 105/57 (73) 94 09/18/17 05:34 98.8 103 18 101/65 (77) 96 09/18/17 00:47 98.0 109 18 107/58 (74) 96 09/18/17 00:30 122 09/17/17 23:34 98.0 109 18 107/58 96 09/17/17 23:15 98.4 111 18 114/57 96 09/17/17 22:57 99.1 122 18 122/55 96 09/17/17 22:33 98.7 117 18 122/62 96 09/17/17 20:54 98.6 105 18 122/79 (93) 97 09/17/17 20:30 121 09/17/17 16:15 104 09/17/17 16:00 97.8 112 19 128/63 (84) 96 09/17/17 12:33 116 21 119/61 96 09/17/17 12:15 107 09/17/17 12:00 98.1 106 19 114/59 (77) 96 09/17/17 11:40 98.6 110 20 123/54 95 09/17/17 11:14 98.1 105 20 114/59 97 I/O 09/17/17 09/17/17 09/17/17 09/18/17 09/18/17 09/18/17 07:00 15:00 23:00 07:00 15:00 23:00 Intake Total 1000 ml 408 ml 820 ml 340 ml Output Total 1400 ml Balance -400 ml 408 ml 820 ml 340 ml Intake Oral 720 ml IV Total 1000 ml 100 ml Packed Cells 388 ml 340 ml Blood Product IV Normal Saline Flush 20 ml Output Urine Total 1400 ml # Voids 3 1 # Bowel Movements 1 Result Diagram: 09/17/17 1632 09/17/17 0530 Imaging Last Impressions Chest X-Ray 09/16/17 1442 Signed Impressions: Service Date/Time: Saturday, September 16, 2017 15:15 - CONCLUSION: Right upper lung atelectasis. No other acute cardiopulmonary disease identified. Mike Zhou MD Abdomen/Pelvis CT 09/16/17 0000 Signed Impressions: Service Date/Time: Saturday, September 16, 2017 17:26 - CONCLUSION: 1. Marked splenomegaly with large contiguous areas of hypodensity in the spleen likely representing large areas of infarct. Splenic vein is patent. Splenic artery is patent. 2. Small amount of free fluid. 3. Hepatomegaly. Mike Zhou MD Objective Remarks General: No acute distress. Heart: Regular rate and rhythm. No murmur. Lungs: Clear to auscultation bilaterally. No wheezes, rales, or rhonchi. Breathing is nonlabored. Abdomen: Soft, nontender, nondistended. Extremities: No lower extremity edema. Psych: Alert and oriented. Skin: Raised erythematous rash on left arm and hand following dermatomal pattern. There are some vesicular lesions on the hand. Procedures None Urinary Catheter: No Vascular Central Line Catheter: No A/P Problem List: (1) Anemia ICD Code: D64.9 - Anemia, unspecified (2) Myeloproliferative disorder ICD Code: D47.1 - Chronic myeloproliferative disease (3) Hematuria ICD Code: R31.9 - Hematuria, unspecified (4) Sepsis ICD Code: A41.9 - Sepsis, unspecified organism Status: Acute (5) Thrombocytopenia ICD Code: D69.6 - Thrombocytopenia, unspecified Status: Acute (6) Shingles ICD Code: B02.9 - Zoster without complications Assessment and Plan 1. Severe anemia: Patient has myeloproliferative disorder. Anemia is acutely worsened, likely secondary to hematuria. Status post transfusion of 2 units PRBCs. Appreciate hematology recommendations. Discussed with Dr. Cheema and Aretha JIMENEZ. Labs are pending this morning. 2. Transaminitis: CT of the abdomen/pelvis shows hepatomegaly. Monitor labs. 3. Atrial fibrillation: Xarelto discontinued 3-4 weeks ago secondary to thrombocytopenia. Continue digoxin. 4. UTI: Blood cultures are negative so far. Urine culture growing gram-positive zach. Continue antibiotics. 5. Sepsis: Source is UTI. Patient presented with leukocytosis, fever, tachycardia. Continue antibiotics. Cultures are negative so far. 6. Hematuria: Appreciate urology recommendations. Hematuria has resolved. Follow -up as outpatient. 7. DVT prophylaxis: SCDs, CHAIM hose. Avoid chemical prophylaxis secondary to thrombocytopenia, bleeding. 8. Shingles: Patient has maculopapular/vesicular rash on the left arm in a dermatomal pattern. Start IV acyclovir. Discharge Planning Possible discharge home next 1-2 days pending further clinical improvement. Dominguez Naik MD Sep 18, 2017 10:01
--- NOTE | 2017-09-18 10:14 | PD.ONC.PN ---
Subjective Subjective Remarks Afebrile overnight. Patient reporting a rash on the left arm present for the past 48 hours. Rash now extends to hand. No tingling or numbness. States hematuria has cleared. Objective Data Date Time Temp Pulse Resp B/P (MAP) Pulse Ox O2 Delivery O2 Flow Rate FiO2 09/18/17 08:00 98.7 115 20 105/57 (73) 94 09/18/17 05:34 98.8 103 18 101/65 (77) 96 09/18/17 00:47 98.0 109 18 107/58 (74) 96 09/18/17 00:30 122 09/17/17 23:34 98.0 109 18 107/58 96 09/17/17 23:15 98.4 111 18 114/57 96 09/17/17 22:57 99.1 122 18 122/55 96 09/17/17 22:33 98.7 117 18 122/62 96 09/17/17 20:54 98.6 105 18 122/79 (93) 97 09/17/17 20:30 121 09/17/17 16:15 104 09/17/17 16:00 97.8 112 19 128/63 (84) 96 09/17/17 12:33 116 21 119/61 96 09/17/17 12:15 107 09/17/17 12:00 98.1 106 19 114/59 (77) 96 09/17/17 11:40 98.6 110 20 123/54 95 09/17/17 11:14 98.1 105 20 114/59 97 09/18/17 09/18/17 09/18/17 07:00 15:00 23:00 Intake Total 340 ml Balance 340 ml Result Diagram: 09/17/17 1632 09/17/17 0530 Laboratory Results Laboratory Tests Test 09/17/17 16:32 White Blood Count 40.2 TH/MM3 Red Blood Count 2.13 MIL/MM3 Hemoglobin 6.9 GM/DL Hematocrit 21.0 % Mean Corpuscular Volume 98.6 FL Mean Corpuscular Hemoglobin 32.6 PG Mean Corpuscular Hemoglobin Concent 33.1 % Red Cell Distribution Width 20.4 % Platelet Count 55 TH/MM3 Mean Platelet Volume 10.9 FL Neutrophils (%) (Auto) 91.1 % Lymphocytes (%) (Auto) 2.1 % Monocytes (%) (Auto) 4.9 % Eosinophils (%) (Auto) 1.4 % Basophils (%) (Auto) 0.5 % Neutrophils # (Auto) 36.6 TH/MM3 Lymphocytes # (Auto) 0.8 TH/MM3 Monocytes # (Auto) 2.0 TH/MM3 Eosinophils # (Auto) 0.5 TH/MM3 Basophils # (Auto) 0.2 TH/MM3 CBC Comment AUTO DIFF Differential Total Cells Counted 100 Neutrophils % (Manual) 81 % Band Neutrophils % 10 % Monocytes % 1 % Eosinophils % 1 % Neutrophils # (Manual) 39.4 TH/MM3 Metamyelocytes 2 % Myelocytes 4 % Promyelocytes 1 % Nucleated Red Blood Cells 4 /100 WBC Differential Comment FINAL DIFF MANUAL Toxic Granulation 1+ Toxic Vacuolation PRESENT Platelet Estimate LOW Platelet Morphology Comment NORMAL Culture Results Microbiology Date/Time Source Procedure Growth Status 09/16/17 15:15 Blood Peripheral Aerobic Blood Culture - Preliminary NO GROWTH IN 1 DAY Resulted 09/16/17 15:15 Blood Peripheral Anaerobic Blood Culture - Preliminary NO GROWTH IN 1 DAY Resulted 09/16/17 15:10 Blood Peripheral Aerobic Blood Culture - Preliminary NO GROWTH IN 1 DAY Resulted 09/16/17 15:10 Blood Peripheral Anaerobic Blood Culture - Preliminary NO GROWTH IN 1 DAY Resulted 09/16/17 15:24 Nasal Washing Influenza Types A,B Antigen (KYLAH) - Final NEGATIVE FOR FLU A AND B ANTIGEN.... Complete 09/16/17 16:13 Urine Clean Catch Urine Culture - Preliminary <10,000 CFU/ML GRAM POSITIVE ELLIOT Resulted Administered Medications Medications (Trade) Dose Ordered Sig/Cindy Route PRN Reason Start Time Stop Time Status Last Admin Dose Admin Sodium Chloride (NS Flush) 2 ml BID IV FLUSH 09/16/17 21:00 09/18/17 09:12 Digoxin (Lanoxin) 0.125 mg DAILY PO 09/17/17 09:00 09/18/17 09:11 Cefepime HCl 2000 mg/Sodium Chloride 100 ml @ 200 mls/hr Q8H IV 09/17/17 04:00 09/18/17 04:55 Objective Remarks GENERAL: Middle aged male sitting up in bed in [facility]. SKIN: Warm and dry. vesicular rash on an erythematous base along the C5/C6 dermatome. HEAD: Normocephalic. EYES: No injection or drainage. NECK: Supple, trachea midline. CARDIOVASCULAR: Regular rate and rhythm RESPIRATORY: anterior dotson clear. GASTROINTESTINAL: Abdomen soft, non-tender, nondistended. EXTREMITIES: No cyanosis NEUROLOGICAL: awake and alert, normal speech. Assessment/Plan Problem List: (1) Myeloproliferative disorder ICD Codes: D47.1 - Chronic myeloproliferative disease Plan: This is a 67-year-old male who has a history of myeloproliferative neoplasm, who presents to the emergency room with weakness, hematuria and fever. --transfusion dependent. transfuse as needed to maintain hgb>7.5mg/dL --Hold Jakafi. --hold off on aspirin. I will consider restarting ASA in the outpatient setting. (2) Hematuria ICD Codes: R31.9 - Hematuria, unspecified Plan: 09/18: improved. --Hematuria in the setting of thrombocytopenia while being on aspirin and acute renal failure. --avoid any NSAIDs. --Urology following, plans cystoscopy outpatient. (3) Herpes zoster ICD Codes: B02.9 - Zoster without complications Plan: --on Acyclovir. (4) Acute renal failure ICD Codes: N17.9 - Acute kidney failure, unspecified Plan: -- likely due to prerenal causes, severe anemia etc. --Will closely monitor his creatinine. (5) Transaminitis ICD Codes: R74.0 - Nonspecific elevation of levels of transaminase and lactic acid dehydrogenase [LDH] Plan: --possibly due to Jakafi --Hep Panel pending Assessment 67y/o male w/ h/o myeloproliferative neoplasm admitted with fever, hematuria, LUQ abdominal pain. +CHELA-2 positive disease. currently being treated with Jakafi. CT abdomen and pelvis showed marked splenomegaly with hypodensity in the spleen resulting from an infarct, the splenic vein was patent. The splenic artery was patent. h/o Atrial fibrillation. Hypertension. Chronic lower extremity edema. Plan 1. start Acyclovir for herpes zoster, left arm 2. monitor labs. would keep patient for additional day and monitor rash. 3. continue supportive care. Attending Statement The exam, history, and the medical decision-making described in the above note were completed with the assistance of the mid-level provider. I reviewed and agree with the findings presented. I attest that I had a [id number] encounter with the patient on the same day, and personally performed and documented my assessment and findings in the medical record. severe anemia persists transfuse additional unit of pRBC today r/o hemolysis check LDH , haptoglobin and Direct Diane check stool occult liver functions improving Hep profile negative outbreak of shingles left arm start acyclovir replace potassium malnutrition/hypoalbuminemia-- encourage oral intake and start ensure or boost tid with meals does not like hospital food was on heart healthy diet basurto eto regular diet d/w rn o/n events reviewed Problem Qualifiers (1) Herpes zoster: Qualified Codes: B02.9 - Zoster without complications Aretha Kumar Sep 18, 2017 10:14 Jovan Cheema MD Sep 19, 2017 01:40
[2017-09-18 10:41] LABS: HEPATITIS A AB IGM NEGATIVE (NEGATIVE); HEPATITIS B CORE AB IGM NEGATIVE (NEGATIVE); HEPATITIS B SURFACE ANTIGEN NEGATIVE (NEGATIVE); HEPATITIS C AB IgG NEGATIVE (NEGATIVE)
[2017-09-18 12:17] LABS: AUTOMATED NEUTROPHIL # 36.2 TH/MM3 (1.8-7.7); BASOPHIL # 0.2 TH/MM3 (0-0.2); BASOPHIL % 0.5 % (0.0-2.0); EOSINOPHIL # 1.4 TH/MM3 (0-0.4); EOSINOPHIL % 3.6 % (0.0-4.0); LYMPH % 1.3 % (9.0-44.0); LYMPHOCYTE # 0.5 TH/MM3 (1.0-4.8); MEAN CELL VOLUME 96.3 FL (80.0-100.0); MEAN CORPUSCULAR HEMOGLOBIN 31.7 PG (27.0-34.0); MEAN CORPUSCULAR HGB CONC 32.9 % (32.0-36.0); MEAN PLATELET VOLUME 11.2 FL (7.0-11.0); MONO % 3.4 % (0.0-8.0); MONOCYTE # 1.3 TH/MM3 (0-0.9); NEUT % 91.2 % (16.0-70.0); PLATELET COUNT 46 TH/MM3 (150-450); RED BLOOD COUNT 2.16 MIL/MM3 (4.50-5.90); RED CELL DISTRIBUTION WIDTH 20.9 % (11.6-17.2); WHITE BLOOD COUNT 39.7 TH/MM3 (4.0-11.0)
[2017-09-18 12:30] LABS: HEMATOCRIT 20.8 % (39.0-51.0); HEMOGLOBIN 6.9 GM/DL (13.0-17.0)
[2017-09-18] MEDS: SODIUM CHLORIDE 0.9% IV SCH ×2 (12:41→21:13)
[2017-09-18] MEDS: ACYCLOVIR IV SCH ×2 (12:41→21:13)
[2017-09-18 12:59] LABS: ALBUMIN 2.2 GM/DL (3.4-5.0); BICARBONATE 16.7 MEQ/L (21.0-32.0); CALCIUM 6.6 MG/DL (8.5-10.1); CALCIUM-PROTEIN CORRECTED 7.8 MG/DL (8.5-10.1); CREATININE 1.18 MG/DL (0.60-1.30); TOTAL BILIRUBIN ADULT 0.6 MG/DL (0.2-1.0); TOTAL PROTEIN 4.8 GM/DL (6.4-8.2)
[2017-09-18 13:10] LABS: BANDS 11 % (0-6); CORRECTED NUCLEATED RBC 5 /100 WBC (0-0); LYMPHOCYTES 1 % (9-44); METAMYELOCYTES 3 % (0-1); MONOCYTES 2 % (0-8); MYELOCYTES 1 % (0-0); NEUTROPHIL # MANUAL DIFF 38.5 TH/MM3 (1.8-7.7); NUCLEATED RED BLOOD CELL 5 (0-0); POLYS (SEG NEUTROPHILS) 82 % (16-70); TOXIC VACUOLATION PRESENT (NONE SEEN)
[2017-09-18 13:11] LABS: TOXIC GRANULATION 1+ (NORMAL)
[2017-09-18] MEDS ORDERED: ACETAMINOPHEN 325 MG TAB PO PRN (14:00)
[2017-09-18] MEDS ORDERED: diphenhydrAMINE HCL 25 MG CAP PO PRN (14:00)
[2017-09-18] MEDS: POTASSIUM CHLOR 20 MEQ PREMIX 100 ML IV SCH ×2 (15:11→21:14)
[2017-09-18] MEDS ORDERED: SODIUM CHLOR 0.9% 250 ML INJ 250 ML IV ONE (15:45)
[2017-09-19] VITALS (11 sets, daily range): BP systolic 115–127; BP diastolic 57–71; PULSE 86–117; RESP 17–18; TEMP 98.2–99.4; O2SAT 95–98
[2017-09-19 00:40] LABS: HEMATOCRIT 26.1 % (39.0-51.0); HEMOGLOBIN 8.6 GM/DL (13.0-17.0)
[2017-09-19] MEDS: CEFEPIME INJ 2,000 MG in SODIUM CHLORIDE 0.9% INJ 100 ML IV SCH ×3 (02:42→22:31)
[2017-09-19] MEDS: ACYCLOVIR IV SCH ×3 (02:42→17:13)
[2017-09-19] MEDS: SODIUM CHLORIDE 0.9% IV SCH ×3 (02:42→17:13)
[2017-09-19] MEDS: DIGOXIN 0.125 MG TAB PO SCH (08:37)
[2017-09-19] MEDS: SODIUM CHLORIDE 0.9% FLUSH 10 ML FLUSH IV FLUSH SCH ×2 (08:37→21:00)
[2017-09-19] MEDS: SPIRONOLACTONE 25 MG TAB PO SCH (08:39)
--- NOTE | 2017-09-19 10:10 | HHI.PR ---
Subjective Remarks Follow up shingles, hypokalemia, anemia. Patient reports that the rash is less pruritic today. Denies chest pain, dyspnea. Objective Vitals Vital Signs Date Time Temp Pulse Resp B/P (MAP) Pulse Ox O2 Delivery O2 Flow Rate FiO2 09/19/17 08:30 99.4 116 18 127/57 (80) 97 09/19/17 05:00 98.5 116 17 122/59 (80) 95 09/19/17 00:48 98.4 112 17 116/63 (80) 97 09/19/17 00:30 113 09/18/17 23:30 120 09/18/17 20:36 98.4 101 17 106/53 (70) 96 09/18/17 20:30 101 09/18/17 19:06 98.5 107 17 118/58 95 09/18/17 17:56 98.4 107 17 123/59 96 09/18/17 17:46 108 09/18/17 17:34 98.7 110 16 123/56 96 09/18/17 17:10 99.7 108 17 117/55 95 09/18/17 16:18 98.3 126 20 108/59 (75) 97 09/18/17 15:02 108 09/18/17 12:15 98.7 96 20 120/51 (74) 97 I/O 09/18/17 09/18/17 09/18/17 09/19/17 09/19/17 09/19/17 07:00 15:00 23:00 07:00 15:00 23:00 Intake Total 440 ml 730 ml 730 ml 580 ml Balance 440 ml 730 ml 730 ml 580 ml Intake Oral 480 ml 480 ml IV Total 100 ml 250 ml 350 ml 100 ml Packed Cells 340 ml 380 ml # Voids 1 3 3 # Bowel Movements 2 2 Result Diagram: 09/19/17 0020 09/18/17 1155 Imaging Last Impressions Chest X-Ray 09/16/17 1442 Signed Impressions: Service Date/Time: Saturday, September 16, 2017 15:15 - CONCLUSION: Right upper lung atelectasis. No other acute cardiopulmonary disease identified. Mike Zhou MD Abdomen/Pelvis CT 09/16/17 0000 Signed Impressions: Service Date/Time: Saturday, September 16, 2017 17:26 - CONCLUSION: 1. Marked splenomegaly with large contiguous areas of hypodensity in the spleen likely representing large areas of infarct. Splenic vein is patent. Splenic artery is patent. 2. Small amount of free fluid. 3. Hepatomegaly. Mike Zhou MD Objective Remarks General: No acute distress. Heart: Regular rate and rhythm. No murmur. Lungs: Clear to auscultation bilaterally. No wheezes, rales, or rhonchi. Breathing is nonlabored. Abdomen: Soft, nontender, nondistended. Extremities: No lower extremity edema. Psych: Alert and oriented. Skin: Raised erythematous rash on left arm and hand following dermatomal pattern. There are some vesicular lesions on the hand. Procedures None Urinary Catheter: No Vascular Central Line Catheter: No A/P Problem List: (1) Anemia ICD Code: D64.9 - Anemia, unspecified (2) Myeloproliferative disorder ICD Code: D47.1 - Chronic myeloproliferative disease (3) Hematuria ICD Code: R31.9 - Hematuria, unspecified (4) Sepsis ICD Code: A41.9 - Sepsis, unspecified organism Status: Acute (5) Thrombocytopenia ICD Code: D69.6 - Thrombocytopenia, unspecified Status: Acute (6) Shingles ICD Code: B02.9 - Zoster without complications Assessment and Plan 1. Severe anemia: Patient has myeloproliferative disorder. Anemia worsened secondary to hematuria. Status post transfusion of 3 units PRBCs. Appreciate hematology recommendations. Discussed with Dr. Chemea and Aretha JIMENEZ. H/H improved overnight. Labs are pending this morning. 2. Transaminitis: CT of the abdomen/pelvis shows hepatomegaly. LFTs are improving. 3. Atrial fibrillation: Xarelto discontinued 3-4 weeks ago secondary to thrombocytopenia. Continue digoxin. 4. UTI: Blood cultures are negative so far. Urine culture growing gram-positive zach. Continue antibiotics. 5. Sepsis: Source is UTI. Patient presented with leukocytosis, fever, tachycardia. Continue antibiotics. Cultures are negative so far. 6. Hematuria: Appreciate urology recommendations. Hematuria has resolved. Follow -up as outpatient. 7. DVT prophylaxis: SCDs, CHAIM hose. Avoid chemical prophylaxis secondary to thrombocytopenia, bleeding. 8. Shingles: Patient has maculopapular/vesicular rash on the left arm in a dermatomal pattern. Continue IV acyclovir. 9. Hypokalemia: Labs are pending today. Discharge Planning Possible discharge home later today pending labs, hand surgery eval. Dominguez Naik MD Sep 19, 2017 10:10
--- NOTE | 2017-09-19 10:41 | PD.ONC.PN ---
Subjective Subjective Remarks Afebrile overnight. Patient resting in bed in nad. No complaints. left arm had some pruritus over the last 24 hours, but minimal pain. no neuropathy. Objective Data Date Time Temp Pulse Resp B/P (MAP) Pulse Ox O2 Delivery O2 Flow Rate FiO2 09/19/17 08:30 99.4 116 18 127/57 (80) 97 09/19/17 05:00 98.5 116 17 122/59 (80) 95 09/19/17 00:48 98.4 112 17 116/63 (80) 97 09/19/17 00:30 113 09/18/17 23:30 120 09/18/17 20:36 98.4 101 17 106/53 (70) 96 09/18/17 20:30 101 09/18/17 19:06 98.5 107 17 118/58 95 09/18/17 17:56 98.4 107 17 123/59 96 09/18/17 17:46 108 09/18/17 17:34 98.7 110 16 123/56 96 09/18/17 17:10 99.7 108 17 117/55 95 09/18/17 16:18 98.3 126 20 108/59 (75) 97 09/18/17 15:02 108 09/18/17 12:15 98.7 96 20 120/51 (74) 97 09/19/17 09/19/17 09/19/17 07:00 15:00 23:00 Intake Total 580 ml Balance 580 ml Result Diagram: 09/19/17 0020 09/18/17 1155 Laboratory Results Laboratory Tests Test 09/18/17 11:55 09/19/17 00:20 White Blood Count 39.7 TH/MM3 Red Blood Count 2.16 MIL/MM3 Hemoglobin 6.9 GM/DL 8.6 GM/DL Hematocrit 20.8 % 26.1 % Mean Corpuscular Volume 96.3 FL Mean Corpuscular Hemoglobin 31.7 PG Mean Corpuscular Hemoglobin Concent 32.9 % Red Cell Distribution Width 20.9 % Platelet Count 46 TH/MM3 Mean Platelet Volume 11.2 FL Neutrophils (%) (Auto) 91.2 % Lymphocytes (%) (Auto) 1.3 % Monocytes (%) (Auto) 3.4 % Eosinophils (%) (Auto) 3.6 % Basophils (%) (Auto) 0.5 % Neutrophils # (Auto) 36.2 TH/MM3 Lymphocytes # (Auto) 0.5 TH/MM3 Monocytes # (Auto) 1.3 TH/MM3 Eosinophils # (Auto) 1.4 TH/MM3 Basophils # (Auto) 0.2 TH/MM3 CBC Comment AUTO DIFF Differential Total Cells Counted 100 Neutrophils % (Manual) 82 % Band Neutrophils % 11 % Lymphocytes % 1 % Monocytes % 2 % Neutrophils # (Manual) 38.5 TH/MM3 Metamyelocytes 3 % Myelocytes 1 % Nucleated Red Blood Cells 5 /100 WBC Differential Comment FINAL DIFF MANUAL Toxic Granulation 1+ Toxic Vacuolation PRESENT Platelet Estimate LOW Platelet Morphology Comment NORMAL Blood Urea Nitrogen 27 MG/DL Creatinine 1.18 MG/DL Random Glucose 113 MG/DL Total Protein 4.8 GM/DL Albumin 2.2 GM/DL Calcium Level 6.6 MG/DL Alkaline Phosphatase 157 U/L Aspartate Amino Transf (AST/SGOT) 45 U/L Alanine Aminotransferase (ALT/SGPT) 16 U/L Total Bilirubin 0.6 MG/DL Sodium Level 142 MEQ/L Potassium Level 2.8 MEQ/L Chloride Level 116 MEQ/L Carbon Dioxide Level 16.7 MEQ/L Anion Gap 9 MEQ/L Estimat Glomerular Filtration Rate 62 ML/MIN Protein Corrected Calcium 7.8 MG/DL Culture Results Microbiology Date/Time Source Procedure Growth Status 09/16/17 15:15 Blood Peripheral Aerobic Blood Culture - Preliminary NO GROWTH IN 2 DAYS Resulted 09/16/17 15:15 Blood Peripheral Anaerobic Blood Culture - Preliminary NO GROWTH IN 2 DAYS Resulted 09/16/17 15:10 Blood Peripheral Aerobic Blood Culture - Preliminary NO GROWTH IN 2 DAYS Resulted 09/16/17 15:10 Blood Peripheral Anaerobic Blood Culture - Preliminary NO GROWTH IN 2 DAYS Resulted 09/18/17 20:20 Stool Stool Stool Occult Blood ([facility]) Pending Received 09/16/17 15:24 Nasal Washing Influenza Types A,B Antigen ([facility]) - Final NEGATIVE FOR FLU A AND B ANTIGEN.... Complete 09/16/17 16:13 Urine Clean Catch Urine Culture - Final <10,000 CFU/ML GRAM POSITIVE ELLIOT Complete Administered Medications Medications (Trade) Dose Ordered Sig/Cindy Route PRN Reason Start Time Stop Time Status Last Admin Dose Admin Sodium Chloride (NS Flush) 2 ml BID IV FLUSH 09/16/17 21:00 09/19/17 08:37 Digoxin (Lanoxin) 0.125 mg DAILY PO 09/17/17 09:00 09/19/17 08:37 Cefepime HCl 2000 mg/Sodium Chloride 100 ml @ 200 mls/hr Q8H IV 09/17/17 04:00 09/19/17 02:42 Acyclovir Sodium 740 mg/Sodium Chloride 150 ml @ 150 mls/hr Q8H IV 09/18/17 11:00 09/19/17 02:42 Acetaminophen (Tylenol) 650 mg Q4H PRN PO SEE LABEL COMMENTS 09/18/17 14:00 09/18/17 16:43 Diphenhydramine HCl (Benadryl) 25 mg Q4H PRN PO SEE LABEL COMMENTS 09/18/17 14:00 09/18/17 16:42 Heparin Sodium (Porcine) (Heparin Central Flush) 100 units DAILY IV FLUSH 09/19/17 09:00 09/19/17 08:37 Objective Remarks GENERAL: Middle aged male sitting up in bed in [facility]. SKIN: Warm and dry. multiple blisters and vesicles on left arm/left hand. HEAD: Normocephalic. EYES: No injection or drainage. NECK: Supple, trachea midline. CARDIOVASCULAR: IRR RESPIRATORY: anterior dotson clear. GASTROINTESTINAL: Abdomen soft, non-tender, nondistended. EXTREMITIES: No cyanosis NEUROLOGICAL: awake and alert, normal speech. moving all extremities. Assessment/Plan Problem List: (1) Myeloproliferative disorder ICD Codes: D47.1 - Chronic myeloproliferative disease Plan: --transfusion dependent. transfuse as needed to maintain hgb>7.5mg/dL --Hold Jakafi. --hold off on aspirin. will consider restarting ASA in the outpatient setting. (2) Hematuria ICD Codes: R31.9 - Hematuria, unspecified Plan: 09/18: improved. --Hematuria in the setting of thrombocytopenia while being on aspirin and acute renal failure. --avoid any NSAIDs. --Urology following, plans cystoscopy outpatient. (3) Herpes zoster ICD Codes: B02.9 - Zoster without complications Plan: --on Acyclovir. (4) Acute renal failure ICD Codes: N17.9 - Acute kidney failure, unspecified Plan: -- likely due to prerenal causes, severe anemia etc. --Will closely monitor his creatinine. (5) Transaminitis ICD Codes: R74.0 - Nonspecific elevation of levels of transaminase and lactic acid dehydrogenase [LDH] Plan: --possibly due to Jakafi --Hep Panel pending (6) Anemia ICD Codes: D64.9 - Anemia, unspecified Plan: --LDH elevated, haptoglobin low, ?hemolytic anemia. will ask pathologist for smear review. --had hematuria when admitted, now cleared. Assessment 67y/o male w/ h/o myeloproliferative neoplasm admitted with fever, hematuria, LUQ abdominal pain. +CHELA-2 positive disease. currently being treated with Jakafi. CT abdomen and pelvis showed marked splenomegaly with hypodensity in the spleen resulting from an infarct, the splenic vein was patent. The splenic artery was patent. h/o Atrial fibrillation. Hypertension. Chronic lower extremity edema. Plan 1. continue Acyclovir 2. recommend consulting hand surgery for evaluation of left hand blisters 3. monitor CBC, transfuse as needed. 4. pathologist smear review for possibility of MAHA w/ elevated LDH and low haptoglobin. Attending Statement The exam, history, and the medical decision-making described in the above note were completed with the assistance of the mid-level provider. I reviewed and agree with the findings presented. I attest that I had a [id number] encounter with the patient on the same day, and personally performed and documented my assessment and findings in the medical record. Patient with high risk MPN HB stable today Labs are somewhat concerning Low Haptoglobin and elevated LDH points towards micrangiopathy however today no significant rbc framnets were seen will ask path to review smear in am check LFTs and bili components in am Direct Diane negative, however possibility of hemolysis exists. if direct bili elevate then will start steroids send for ADAMTS 13 activity. will check for PNH clone may need to obtain a bone marrow biopsy since I am concerned about clonal evaluation of disease Leukocytosis worsening due to MPN continue treatment for shingles with acyclovir replace potassium encourage oral intake complex patient with multiple issues. not ready for discharge d/w rn o/n events reviewed Problem Qualifiers (1) Herpes zoster: Qualified Codes: B02.9 - Zoster without complications Aretha Kumar Sep 19, 2017 10:41 Jovan Cheema MD Sep 20, 2017 00:01
[2017-09-19 10:48] LABS: HEMATOCRIT 27.9 % (39.0-51.0); MEAN CORPUSCULAR HEMOGLOBIN 30.1 PG (27.0-34.0); MEAN CORPUSCULAR HGB CONC 32.4 % (32.0-36.0); MEAN PLATELET VOLUME 10.7 FL (7.0-11.0); PLATELET COUNT 55 TH/MM3 (150-450); RED CELL DISTRIBUTION WIDTH 22.8 % (11.6-17.2)
[2017-09-19 11:09] LABS: BICARBONATE 19.3 MEQ/L (21.0-32.0); CREATININE 1.65 MG/DL (0.60-1.30)
[2017-09-19] MEDS ORDERED: POTASSIUM CHLORIDE 10 MEQ CONTROLLED RELEASE TAB PO ONE (11:30)
[2017-09-19 11:45] LABS: BANDS 3 % (0-6); CORRECTED NUCLEATED RBC 2 /100 WBC (0-0); LYMPHOCYTES 5 % (9-44); METAMYELOCYTES 4 % (0-1); MONOCYTES 10 % (0-8); MYELOCYTES 5 % (0-0); NEUTROPHIL # MANUAL DIFF 47.2 TH/MM3 (1.8-7.7); NUCLEATED RED BLOOD CELL 2 (0-0); POLYS (SEG NEUTROPHILS) 68 % (16-70); TOXIC GRANULATION 2+ (NORMAL); TOXIC VACUOLATION PRESENT (NONE SEEN)
[2017-09-19] MEDS ORDERED: NS + KCL 20 MEQ INJ 1,000 ML IV SCH (13:00)
--- NOTE | 2017-09-19 15:55 | MB ---
cc: YESSENIA LAUREN III, M.D. DATE OF CONSULTATION: 09/19/2017 HISTORY OF PRESENT ILLNESS The patient is a very friendly 67-year-old male who was admitted 09/16/2017 with abdominal discomfort, distension and diarrhea. He was on chemotherapy for myeloproliferative disorder. He has since developed a hematoma and what appears to be herpes zoster infection or shingles of his left arm and hand. He has been placed on intravenous acyclovir. His states he developed two small palmar hematomas from leaning on a brand new walker with a very rigid handle. This does correlate with the hematoma which is not infected. PAST MEDICAL HISTORY 1. Myeloproliferative disease. 2. Atrial fibrillation. 3. Thrombocytopenia. 4. Splenomegaly. 5. Urinary tract infection. PAST SURGICAL HISTORY Cataract surgery and port placement. MEDICATIONS 1. Potassium. 2. Heparin flush. 3. Tylenol. 4. Benadryl. 5. Acyclovir. 6. Digoxin. 7. Aldactone. 8. Cefepime. ALLERGIES NO KNOWN DRUG ALLERGIES. FAMILY HISTORY Reviewed and noncontributory to this problem on this admission. SOCIAL HISTORY He is , lives with his . He does not smoke. REVIEW OF SYSTEMS He is not complaining of any headaches or double or blurry vision. Not complaining of any ringing in the ears. He is not complaining of any chest pain or palpitations. He is not complaining of any coughing, wheezing or shortness of breath. He is not complaining of any nausea, vomiting or abdominal pain. He is not complaining of any burning, frequency or urgency with urination. He is not complaining of any night sweats, fevers or chills. He is complaining of rashes and eruptions on his left forearm and hand that he shows me. He is not complaining of any anxiety, depression or suicidal ideations. PHYSICAL EXAMINATION GENERAL: He is well-developed, well-nourished, in no apparent distress, very pleasant and cheerful, sitting comfortably in his bed in the hospital with his at his side. VITAL SIGNS: Temperature is 98.7, heart rate 108, respiratory rate 18, blood pressure 125/58. EXTREMITIES: Examination of left upper extremity reveals it is wrapped in a Kerlix dressing but he easily and painlessly unwraps it for me to show me the dermatomal distribution of small papular rash which does appear to be herpes virus or shingles episode. It seems to spare the third, fourth and fifth fingers. He has full active range of motion and all musculotendinous units are intact. He is neurovascularly intact throughout and there is no overt tenderness. There is no fluid collection anywhere in his upper extremity that I can identify. There is no epitrochlear adenopathy palpable. There is no area of induration. He does have a 3 cm contained clean hematoma at the base of his palm that is superficial and a second one in the first webspace which correlates with him putting too much pressure on it from his new walker handle which is here in the room with him. IMPRESSION 1. Left hand hematomas x2. I do not recommend any treatment except for observation as these should resolve. They are not infected right now and they are contained. 2. Herpes/shingles left upper extremity. This appears to be in a dermatomal distribution. I would continue with the acyclovir treatment and observation and this should resolve on its own. There is no indication for any surgical intervention. I will ask occupational therapist to come and construct something for his walker handles. I told the patient he can call me at anytime with any questions or concerns, but I will see him on as needed basis. MD TIFFANY Gallegos III/CHACHA /3:02 PM /3:23 PM
[2017-09-19 16:35] LABS: INTERNATIONAL NORMALIZED RATIO 1.2 RATIO; PROTHROMBIN TIME - PATIENT 12.3 SEC (9.8-11.6)
[2017-09-20] VITALS: BP 116/57; PULSE 97; RESP 18; TEMP 98; O2SAT 97
[2017-09-20 00:30] VITALS: PULSE 103
[2017-09-20] MEDS: CEFEPIME INJ 2,000 MG in SODIUM CHLORIDE 0.9% INJ 100 ML IV SCH ×2 (03:08→12:00)
[2017-09-20] MEDS: ACYCLOVIR IV SCH ×2 (03:08→11:00)
[2017-09-20] MEDS: SODIUM CHLORIDE 0.9% IV SCH ×2 (03:08→11:00)
[2017-09-20 05:00] VITALS: BP 123/59; PULSE 108; RESP 18; TEMP 98.5; O2SAT 97
[2017-09-20 05:49] LABS: MEAN CELL VOLUME 93.7 FL (80.0-100.0); MEAN CORPUSCULAR HEMOGLOBIN 29.8 PG (27.0-34.0); MEAN CORPUSCULAR HGB CONC 31.9 % (32.0-36.0); MEAN PLATELET VOLUME 11.1 FL (7.0-11.0); PLATELET COUNT 54 TH/MM3 (150-450); RED BLOOD COUNT 2.67 MIL/MM3 (4.50-5.90); RED CELL DISTRIBUTION WIDTH 22.8 % (11.6-17.2)
[2017-09-20 06:01] LABS: INTERNATIONAL NORMALIZED RATIO 1.2 RATIO; PROTHROMBIN TIME - PATIENT 12.3 SEC (9.8-11.6)
[2017-09-20 06:15] LABS: ALBUMIN 2.4 GM/DL (3.4-5.0); ALT (GPT) 17 U/L (12-78); AST (GOT) 35 U/L (15-37); BLOOD UREA NITROGEN 27 MG/DL (7-18); CALCIUM 7.5 MG/DL (8.5-10.1); CHLORIDE 114 MEQ/L (98-107); CREATININE 1.37 MG/DL (0.60-1.30); DIRECT BILIRUBIN ADULT 0.2 MG/DL (0.0-0.2); GLUCOSE,RANDOM 93 MG/DL (74-106); SODIUM (NA) 142 MEQ/L (136-145)
[2017-09-20 06:24] LABS: ALKALINE PHOSPHATASE 189 U/L (45-117); INDIRECT BILIRUBIN 0.4 MG/DL (0.0-0.8); LDH SERUM 1404 U/L (87-241); TOTAL BILIRUBIN ADULT 0.6 MG/DL (0.2-1.0); TOTAL PROTEIN 5.5 GM/DL (6.4-8.2)
[2017-09-20 06:57] LABS: BANDS 4 % (0-6); CORRECTED NUCLEATED RBC 2 /100 WBC (0-0); METAMYELOCYTES 1 % (0-1); MONOCYTES 3 % (0-8); MYELOCYTES 5 % (0-0); NEUTROPHIL # MANUAL DIFF 59.9 TH/MM3 (1.8-7.7); NUCLEATED RED BLOOD CELL 2 (0-0); POLYS (SEG NEUTROPHILS) 84 % (16-70); PROMYELOCYTES 1 % (0-0); TOXIC VACUOLATION PRESENT (NONE SEEN)
[2017-09-20 08:00] VITALS: BP 131/60; PULSE 106; RESP 19; TEMP 97.9; O2SAT 97
[2017-09-20 08:49] VITALS: PULSE 124
[2017-09-20] MEDS: SODIUM CHLORIDE 0.9% FLUSH 10 ML FLUSH IV FLUSH SCH (09:26)
[2017-09-20] MEDS: DIGOXIN 0.125 MG TAB PO SCH (09:26)
[2017-09-20] MEDS: SPIRONOLACTONE 25 MG TAB PO SCH (09:26)
[2017-09-20] MEDS ORDERED: ACYC800T PO (11:07)
--- NOTE | 2017-09-20 11:07 | HHI.PR ---
Subjective Remarks Follow up anemia, shingles. Patient states that he is leaving AGAINST MEDICAL ADVICE. He is frustrated and wants to go home. He spoke with Dr. Cheema and Aretha JIMENEZ. He states that he feels good today and "can do this at home". Objective Vitals Vital Signs Date Time Temp Pulse Resp B/P (MAP) Pulse Ox O2 Delivery O2 Flow Rate FiO2 09/20/17 08:49 124 09/20/17 08:00 97.9 106 19 131/60 (83) 97 09/20/17 05:00 98.5 108 18 123/59 (80) 97 09/20/17 00:30 103 09/20/17 00:00 98.0 97 18 116/57 (76) 97 09/19/17 20:30 98.3 107 18 122/71 (88) 97 09/19/17 20:30 111 09/19/17 16:40 98.2 86 18 115/61 (79) 98 09/19/17 16:02 117 09/19/17 15:25 117 09/19/17 12:42 98.7 108 18 125/58 (80) 97 09/19/17 12:16 97 I/O 09/19/17 09/19/17 09/19/17 09/20/17 09/20/17 09/20/17 06:59 14:59 22:59 06:59 14:59 22:59 Intake Total 830 ml 560 ml 240 ml 590 ml 1000 ml Balance 830 ml 560 ml 240 ml 590 ml 1000 ml Intake Oral 480 ml 560 ml 240 ml 240 ml IV Total 350 ml 350 ml 1000 ml # Voids 3 3 2 2 # Bowel Movements 2 1 1 Result Diagram: 09/20/17 0525 09/20/17 0525 Imaging Last Impressions Chest X-Ray 09/16/17 1442 Signed Impressions: Service Date/Time: Saturday, September 16, 2017 15:15 - CONCLUSION: Right upper lung atelectasis. No other acute cardiopulmonary disease identified. Mike Zhou MD Abdomen/Pelvis CT 09/16/17 0000 Signed Impressions: Service Date/Time: Saturday, September 16, 2017 17:26 - CONCLUSION: 1. Marked splenomegaly with large contiguous areas of hypodensity in the spleen likely representing large areas of infarct. Splenic vein is patent. Splenic artery is patent. 2. Small amount of free fluid. 3. Hepatomegaly. Mike Zhou MD Objective Remarks General: No acute distress. Heart: Regular rate and rhythm. No murmur. Lungs: Clear to auscultation bilaterally. No wheezes, rales, or rhonchi. Breathing is nonlabored. Abdomen: Soft, nontender, nondistended. Extremities: No lower extremity edema. Psych: Alert and oriented. Skin: Raised erythematous rash on left arm and hand following dermatomal pattern. There are some vesicular lesions and hematomas on the hand. Procedures None Urinary Catheter: No Vascular Central Line Catheter: No A/P Problem List: (1) Anemia ICD Code: D64.9 - Anemia, unspecified (2) Myeloproliferative disorder ICD Code: D47.1 - Chronic myeloproliferative disease (3) Hematuria ICD Code: R31.9 - Hematuria, unspecified (4) Sepsis ICD Code: A41.9 - Sepsis, unspecified organism Status: Acute (5) Thrombocytopenia ICD Code: D69.6 - Thrombocytopenia, unspecified Status: Acute (6) Shingles ICD Code: B02.9 - Zoster without complications Assessment and Plan 1. Severe anemia: Patient has myeloproliferative disorder. Anemia worsened secondary to hematuria. Status post transfusion of 3 units PRBCs. Appreciate hematology recommendations. Discussed with Dr. Cheema and Aretha JIMENEZ. H/H trending down. Concern for hemolysis with low haptoglobin and elevated LDH. 2. Transaminitis: CT of the abdomen/pelvis shows hepatomegaly. LFTs are improving. 3. Atrial fibrillation: Xarelto discontinued 3-4 weeks ago secondary to thrombocytopenia. Continue digoxin. 4. UTI: Blood cultures are negative so far. Urine culture growing gram-positive zach. Continue antibiotics. 5. Sepsis: Source is UTI. Patient presented with leukocytosis, fever, tachycardia. Continue antibiotics. Cultures are negative so far. 6. Hematuria: Appreciate urology recommendations. Hematuria has resolved. Follow -up as outpatient. 7. DVT prophylaxis: SCDs, CHAIM hose. Avoid chemical prophylaxis secondary to thrombocytopenia, bleeding. 8. Shingles: Patient has maculopapular/vesicular rash on the left arm in a dermatomal pattern. Continue acyclovir. 9. Hypokalemia: Improved. Discharge Planning The patient is signing out AGAINST MEDICAL ADVICE. I spoke to him at length to advise him of our medical recommendation that he remain in the hospital. He was advised of the risk of if he leaves at this time. He states that he understands and still wants to go home. Dominguez Naik MD Sep 20, 2017 11:07
--- NOTE | 2017-09-20 11:07 | PD.ONC.PN ---
Subjective Subjective Remarks Afebrile overnight. Patient very frustrated and angry. Wants to go home. Objective Data Date Time Temp Pulse Resp B/P (MAP) Pulse Ox O2 Delivery O2 Flow Rate FiO2 09/20/17 08:49 124 09/20/17 08:00 97.9 106 19 131/60 (83) 97 09/20/17 05:00 98.5 108 18 123/59 (80) 97 09/20/17 00:30 103 09/20/17 00:00 98.0 97 18 116/57 (76) 97 09/19/17 20:30 98.3 107 18 122/71 (88) 97 09/19/17 20:30 111 09/19/17 16:40 98.2 86 18 115/61 (79) 98 09/19/17 16:02 117 09/19/17 15:25 117 09/19/17 12:42 98.7 108 18 125/58 (80) 97 09/19/17 12:16 97 09/20/17 09/20/17 09/20/17 06:59 14:59 22:59 Intake Total 590 ml 1000 ml Balance 590 ml 1000 ml Result Diagram: 09/20/1725 09/20/17 0525 Laboratory Results Laboratory Tests Test 09/19/17 11:54 09/20/17 05:25 Blood Smear Pathologist Review Prothrombin Time 12.3 SEC 12.3 SEC Prothromb Time International Ratio 1.2 RATIO 1.2 RATIO Activated Partial Thromboplast Time 33.8 SEC 34.3 SEC Fibrinogen 514 mg/dL 485 mg/dL White Blood Count 63.0 TH/MM3 Red Blood Count 2.67 MIL/MM3 Hemoglobin 8.0 GM/DL Hematocrit 25.0 % Mean Corpuscular Volume 93.7 FL Mean Corpuscular Hemoglobin 29.8 PG Mean Corpuscular Hemoglobin Concent 31.9 % Red Cell Distribution Width 22.8 % Platelet Count 54 TH/MM3 Mean Platelet Volume 11.1 FL CBC Comment AUTO DIFF Differential Total Cells Counted 100 Neutrophils % (Manual) 84 % Band Neutrophils % 4 % Monocytes % 3 % Eosinophils % 2 % Neutrophils # (Manual) 59.9 TH/MM3 Metamyelocytes 1 % Myelocytes 5 % Promyelocytes 1 % Nucleated Red Blood Cells 2 /100 WBC Differential Comment FINAL DIFF MANUAL Toxic Vacuolation PRESENT Platelet Estimate LOW Platelet Morphology Comment ENLARGED Haptoglobin LESS THAN 10 MG/DL Blood Urea Nitrogen 27 MG/DL Creatinine 1.37 MG/DL Random Glucose 93 MG/DL Total Protein 5.5 GM/DL Albumin 2.4 GM/DL Calcium Level 7.5 MG/DL Alkaline Phosphatase 189 U/L Aspartate Amino Transf (AST/SGOT) 35 U/L Alanine Aminotransferase (ALT/SGPT) 17 U/L Lactate Dehydrogenase 1404 U/L Total Bilirubin 0.6 MG/DL Direct Bilirubin 0.2 MG/DL Sodium Level 142 MEQ/L Potassium Level 3.5 MEQ/L Chloride Level 114 MEQ/L Carbon Dioxide Level 18.0 MEQ/L Anion Gap 10 MEQ/L Indirect Bilirubin 0.4 MG/DL Culture Results Microbiology Date/Time Source Procedure Growth Status 09/18/17 20:20 Stool Stool Stool Occult Blood ([facility]) - Final HEMOCCULT NEGATIVE Complete Administered Medications Medications (Trade) Dose Ordered Sig/Cindy Route PRN Reason Start Time Stop Time Status Last Admin Dose Admin Sodium Chloride (NS Flush) 2 ml BID IV FLUSH 09/16/17 21:00 09/20/17 09:26 Digoxin (Lanoxin) 0.125 mg DAILY PO 09/17/17 09:00 09/20/17 09:26 Spironolactone (Aldactone) 25 mg DAILY PO 09/17/17 09:00 09/20/17 09:26 Cefepime HCl 2000 mg/Sodium Chloride 100 ml @ 200 mls/hr Q8H IV 09/17/17 04:00 09/20/17 03:08 Acyclovir Sodium 740 mg/Sodium Chloride 150 ml @ 150 mls/hr Q8H IV 09/18/17 11:00 09/20/17 03:08 Acetaminophen (Tylenol) 650 mg Q4H PRN PO SEE LABEL COMMENTS 09/18/17 14:00 09/18/17 16:43 Diphenhydramine HCl (Benadryl) 25 mg Q4H PRN PO SEE LABEL COMMENTS 09/18/17 14:00 09/18/17 16:42 Heparin Sodium (Porcine) (Heparin Central Flush) 100 units DAILY IV FLUSH 09/19/17 09:00 09/20/17 09:26 Objective Remarks GENERAL: Middle aged male upright in bed, frustrated, irritated. SKIN: Warm and dry. improving blisters left arm. HEAD: Normocephalic. EYES: No injection or drainage. NECK: Supple, trachea midline. CARDIOVASCULAR: IRR RESPIRATORY: anterior dotson clear. GASTROINTESTINAL: Abdomen soft, non-tender, nondistended. EXTREMITIES: No cyanosis NEUROLOGICAL: awake and alert, normal speech. moving all extremities. Assessment/Plan Assessment 67y/o male w/ h/o myeloproliferative neoplasm admitted with fever, hematuria, LUQ abdominal pain. +CHELA-2 positive disease. currently being treated with Jakafi. CT abdomen and pelvis showed marked splenomegaly with hypodensity in the spleen resulting from an infarct, the splenic vein was patent. The splenic artery was patent. h/o Atrial fibrillation. Hypertension. Chronic lower extremity edema. Plan 1. I discussed with the patient that his hemoglobin is dropping and LDH is rising and that we are concerned for the possibility of hemolytic anemia. Discussed that we have ordered additional testing to see further clarify these results. The patient is angry that he has been in the hospital since before tha. he states he is going to go home. He states " I don't care if I , I'm going home." Discussed that he would be leaving against medical advice and I could not clear him for discharge. "I don't care, give me the papers now. " Discussed that this may be a new problem and not d/t the myeloproliferative disorder. The patient again states he doesn't care, he is going home. d/w nurse, patient, Dr. lawson and Dr. Naik Attending Statement The exam, history, and the medical decision-making described in the above note were completed with the assistance of the mid-level provider. I reviewed and agree with the findings presented. I attest that I had a [id number] encounter with the patient on the same day, and personally performed and documented my assessment and findings in the medical record. leaving against medical advice w/u pending to clarify MAHA/TTP, Hemolysis or disease transformation transfusion dependent warned of dire consequences-- says " he doesn't care" d/w Dr. Nitin Kumar,Aretha JIMENEZ Sep 20, 2017 11:07 Jovan Lawson MD Sep 21, 2017 00:27
--- NOTE | 2017-09-20 14:34 | HHI.DS ---
Discharge Summary Admission Date Sep 16, 2017 at 19:50 Discharge Date: Sep 20, 2017 Admitting Diagnosis SIRS/Suspected Bacteremia. (1) Anemia ICD Code: D64.9 - Anemia, unspecified (2) Myeloproliferative disorder ICD Code: D47.1 - Chronic myeloproliferative disease (3) Hematuria ICD Code: R31.9 - Hematuria, unspecified (4) Sepsis ICD Code: A41.9 - Sepsis, unspecified organism Status: Acute (5) Thrombocytopenia ICD Code: D69.6 - Thrombocytopenia, unspecified Status: Acute (6) Shingles ICD Code: B02.9 - Zoster without complications Procedures None Brief History - From Admission 67-year-old male with a past medical history significant for myeloproliferative disorder followed by Dr. Cheema, thrombocytopenia and atrial fibrillation presents to the emergency department with hematuria and a fever to 103 that began this morning. The patient reports a 2 day history of anorexia and left- sided abdominal pain since Sunday. Patient has a history of splenomegaly. He also has a newly elevated AST of 529. UA consistent with urinary tract infection. CT of the abdomen/pelvis showed splenomegaly with large area of infarct with patent splenic vein/artery. Also shows hepatomegaly. Chest x-ray with right upper lung atelectasis. WBC 43.6 which is baseline for the patient. Platelets 43. CBC/BMP: 09/20/17 0525 09/20/17 0525 Significant Findings Laboratory Tests Test 09/17/17 16:32 09/18/17 11:55 09/19/17 00:20 09/19/17 10:14 White Blood Count 40.2 TH/MM3 (4.0-11.0) 39.7 TH/MM3 (4.0-11.0) 59.0 TH/MM3 (4.0-11.0) Red Blood Count 2.13 MIL/MM3 (4.50-5.90) 2.16 MIL/MM3 (4.50-5.90) 3.00 MIL/MM3 (4.50-5.90) Hemoglobin 6.9 GM/DL (13.0-17.0) 6.9 GM/DL (13.0-17.0) 8.6 GM/DL (13.0-17.0) 9.0 GM/DL (13.0-17.0) Hematocrit 21.0 % (39.0-51.0) 20.8 % (39.0-51.0) 26.1 % (39.0-51.0) 27.9 % (39.0-51.0) Red Cell Distribution Width 20.4 % (11.6-17.2) 20.9 % (11.6-17.2) 22.8 % (11.6-17.2) Platelet Count 55 TH/MM3 (150-450) 46 TH/MM3 (150-450) 55 TH/MM3 (150-450) Neutrophils (%) (Auto) 91.1 % (16.0-70.0) 91.2 % (16.0-70.0) Lymphocytes (%) (Auto) 2.1 % (9.0-44.0) 1.3 % (9.0-44.0) Neutrophils # (Auto) 36.6 TH/MM3 (1.8-7.7) 36.2 TH/MM3 (1.8-7.7) Lymphocytes # (Auto) 0.8 TH/MM3 (1.0-4.8) 0.5 TH/MM3 (1.0-4.8) Monocytes # (Auto) 2.0 TH/MM3 (0-0.9) 1.3 TH/MM3 (0-0.9) Eosinophils # (Auto) 0.5 TH/MM3 (0-0.4) 1.4 TH/MM3 (0-0.4) Neutrophils % (Manual) 81 % (16-70) 82 % (16-70) Band Neutrophils % 10 % (0-6) 11 % (0-6) Neutrophils # (Manual) 39.4 TH/MM3 (1.8-7.7) 38.5 TH/MM3 (1.8-7.7) 47.2 TH/MM3 (1.8-7.7) Metamyelocytes 2 % (0-1) 3 % (0-1) 4 % (0-1) Myelocytes 4 % (0-0) 1 % (0-0) 5 % (0-0) Promyelocytes 1 % (0-0) Nucleated Red Blood Cells 4 /100 WBC (0-0) 5 /100 WBC (0-0) 2 /100 WBC (0-0) Toxic Granulation 1+ (NORMAL) 1+ (NORMAL) 2+ (NORMAL) Toxic Vacuolation PRESENT (NONE SEEN) PRESENT (NONE SEEN) PRESENT (NONE SEEN) Platelet Estimate LOW (NORMAL) LOW (NORMAL) LOW (NORMAL) Mean Platelet Volume 11.2 FL (7.0-11.0) Lymphocytes % 1 % (9-44) 5 % (9-44) Blood Urea Nitrogen 27 MG/DL (7-18) 30 MG/DL (7-18) Random Glucose 113 MG/DL (74-106) 116 MG/DL (74-106) Total Protein 4.8 GM/DL (6.4-8.2) Albumin 2.2 GM/DL (3.4-5.0) Calcium Level 6.6 MG/DL (8.5-10.1) 8.0 MG/DL (8.5-10.1) Alkaline Phosphatase 157 U/L (45-117) Aspartate Amino Transf (AST/SGOT) 45 U/L (15-37) Potassium Level 2.8 MEQ/L (3.5-5.1) 3.4 MEQ/L (3.5-5.1) Chloride Level 116 MEQ/L (98-107) 112 MEQ/L (98-107) Carbon Dioxide Level 16.7 MEQ/L (21.0-32.0) 19.3 MEQ/L (21.0-32.0) Estimat Glomerular Filtration Rate 62 ML/MIN (>89) 42 ML/MIN (>89) Protein Corrected Calcium 7.8 MG/DL (8.5-10.1) Monocytes % 10 % (0-8) Eosinophils % 5 % (0-4) Platelet Morphology Comment ENLARGED (NORMAL) Haptoglobin LESS THAN 10 MG/DL (30-200) Creatinine 1.65 MG/DL (0.60-1.30) Lactate Dehydrogenase 2020 U/L (87-241) Test 09/19/17 11:54 09/20/17 05:25 Prothrombin Time 12.3 SEC (9.8-11.6) 12.3 SEC (9.8-11.6) Activated Partial Thromboplast Time 33.8 SEC (24.3-30.1) 34.3 SEC (24.3-30.1) Fibrinogen 514 mg/dL (227-377) 485 mg/dL (227-377) White Blood Count 63.0 TH/MM3 (4.0-11.0) Red Blood Count 2.67 MIL/MM3 (4.50-5.90) Hemoglobin 8.0 GM/DL (13.0-17.0) Hematocrit 25.0 % (39.0-51.0) Mean Corpuscular Hemoglobin Concent 31.9 % (32.0-36.0) Red Cell Distribution Width 22.8 % (11.6-17.2) Platelet Count 54 TH/MM3 (150-450) Mean Platelet Volume 11.1 FL (7.0-11.0) Neutrophils % (Manual) 84 % (16-70) Neutrophils # (Manual) 59.9 TH/MM3 (1.8-7.7) Myelocytes 5 % (0-0) Promyelocytes 1 % (0-0) Nucleated Red Blood Cells 2 /100 WBC (0-0) Toxic Vacuolation PRESENT (NONE SEEN) Platelet Estimate LOW (NORMAL) Platelet Morphology Comment ENLARGED (NORMAL) Haptoglobin LESS THAN 10 MG/DL (30-200) Blood Urea Nitrogen 27 MG/DL (7-18) Creatinine 1.37 MG/DL (0.60-1.30) Total Protein 5.5 GM/DL (6.4-8.2) Albumin 2.4 GM/DL (3.4-5.0) Calcium Level 7.5 MG/DL (8.5-10.1) Alkaline Phosphatase 189 U/L (45-117) Lactate Dehydrogenase 1404 U/L (87-241) Chloride Level 114 MEQ/L (98-107) Carbon Dioxide Level 18.0 MEQ/L (21.0-32.0) Imaging Last Impressions Chest X-Ray 09/16/17 1442 Signed Impressions: Service Date/Time: Saturday, September 16, 2017 15:15 - CONCLUSION: Right upper lung atelectasis. No other acute cardiopulmonary disease identified. Mike Zhou MD Abdomen/Pelvis CT 09/16/17 0000 Signed Impressions: Service Date/Time: Saturday, September 16, 2017 17:26 - CONCLUSION: 1. Marked splenomegaly with large contiguous areas of hypodensity in the spleen likely representing large areas of infarct. Splenic vein is patent. Splenic artery is patent. 2. Small amount of free fluid. 3. Hepatomegaly. Mike Zhou MD PE at Discharge General: No acute distress. Heart: Regular rate and rhythm. No murmur. Lungs: Clear to auscultation bilaterally. No wheezes, rales, or rhonchi. Breathing is nonlabored. Abdomen: Soft, nontender, nondistended. Extremities: No lower extremity edema. Psych: Alert and oriented. Skin: Raised erythematous rash on left arm and hand following dermatomal pattern. There are some vesicular lesions and hematomas on the hand. Hospital Course The patient was admitted for further management of anemia, hematuria. The patient's sales representative [employer] was consulted. He received a total of 3 units PRBCs during the hospitalization. He continued to have lab abnormalities, including low haptoglobin and elevated LDH area these were felt to be indicative of hemolytic anemia. Further workup was recommended. The patient decided that he no longer wanted to remain in the hospital and that he would sign out AGAINST MEDICAL ADVICE. Extensive discussions were had with the patient and his at bedside by the attending physician, sales representative [employer], and hematology PA. The patient was strongly advised to remain in the hospital and was counseled that this condition could be fatal. The patient stated that he understood the risk of , but felt that he could no longer remain in the hospital. The patient signed out AGAINST MEDICAL ADVICE. Pt Condition on Discharge: Guarded Discharge Disposition: Discharge Home (AGAINST MEDICAL ADVICE) Discharge Time: > 30 minutes Discharge Instructions New Medications: Acyclovir (Acyclovir) 800 Mg Tab 800 MG PO 5 TIMES A DAY for Mgmt Viral Infection, #25 TAB 0 Refills Dominguez Naik MD Sep 20, 2017 14:34
== END 2017-09-20 12:48 | disposition left against medical advice (07) | DRG 872 ==
LOC: NEPE 14:30 → NEDA 19:50 → N05A 20:44
PROVIDERS: ADMIT Family Medicine; ATTEND Family Medicine
PROC: 30233N1 Transfusion of Nonautologous Red Blood Cells into Peripheral Vein, Percutaneous Approach (ICD-10-PCS; principal; 2017-09-17)
DX: A41.9 Sepsis, unspecified organism (principal); N17.9 Acute kidney failure, unspecified; D69.59 Other secondary thrombocytopenia; I48.91 Unspecified atrial fibrillation; D47.1 Chronic myeloproliferative disease; B02.9 Zoster without complications; D58.9 Hereditary hemolytic anemia, unspecified; J98.11 Atelectasis; N39.0 Urinary tract infection, site not specified; C94.6 Myelodysplastic disease, not elsewhere classified; R16.0 Hepatomegaly, not elsewhere classified; D73.5 Infarction of spleen; R19.7 Diarrhea, unspecified; R00.0 Tachycardia, unspecified; R74.0 Nonspecific elevation of levels of transaminase and lactic acid dehydrogenase [LDH]; R31.0 Gross hematuria; R16.1 Splenomegaly, not elsewhere classified; I10 Essential (primary) hypertension; R60.0 Localized edema; R53.1 Weakness; L29.9 Pruritus, unspecified; E87.6 Hypokalemia; Z79.82 Long term (current) use of aspirin
CPT/HCPCS: 36430; 71010; 74177; 80048; 80053; 80074; 80076; 80162; 81001; 82247; 82248; 82272; 82550; 83010; 83605; 83615; 83690; 83735; 84100; 84484; 85007; 85014; 85018; 85027; 85060; 85384; 85397; 85610; 85730; 86850; 86880; 86900; 86901; 86920; 87040; 87086; 87804; 88184; 88185; J0133; J0692; J1642; J3480; J7030; J7050; P9016; Q9967

== ENCOUNTER 2017-10-04 08:56 | Day surgery (SDC) | payer OTHER ==
[2017-10-04] VITALS (7 sets, daily range): BP systolic 11–117; BP diastolic 54–66; PULSE 83–105; RESP 18–20; TEMP 98; O2SAT 90–97
[~2017-10-04] VITALS: Ht 181.6 cm; Wt 75.0 kg
[~2017-10-04 08:56] MED LIST changes: +ACYC800T PO; +ASPI81CH6 CHEW; -BUME1TAB PO; -HYDR500C PO; -METO1TAB9 PO; +SPIR25 PO; -SPIR25TA PO; -XARE20TA PO; +jakafi PO
[2017-10-04] MEDS ORDERED: ALLO100T PO (09:31)
[2017-10-04] MEDS ORDERED: HYDR500C PO (09:31)
[2017-10-04] MEDS ORDERED: DIGO0.12 PO (09:31)
[2017-10-04] MEDS ORDERED: SODIUM CHLOR 0.9% 1000 ML IV SCH (10:00)
[2017-10-04] MEDS ORDERED: IMPLANTED VASCULAR ACCESS DEVICE/PORT - SODIUM CHLORIDE FLUSH IV FLUSH SCH (10:15)
[2017-10-04] MEDS ORDERED: IMPLANTED VASCULAR ACCESS DEVICE/PORT - SODIUM CHLORIDE FLUSH PRN IV FLUSH (10:15)
[2017-10-04] MEDS ORDERED: SODIUM CHLORIDE 2 ML FLUSH PRN IV FLUSH (10:15)
[2017-10-04] MEDS ORDERED: LIDOCAINE HCL 1% 20 ML VIAL ONE (10:25)
[2017-10-04] MEDS ORDERED: MIDAZOLAM HCL 2 MG/2 ML VIAL ONE ×2 (12:39→13:00)
--- NOTE | 2017-10-04 13:31 | PD.RAD ---
Post CT Procedure Prog Note Pre Procedure Diagnosis: (1) Myeloproliferative disorder Post Procedure Diagnosis: (1) Myeloproliferative disorder Procedure Date: Oct 04, 2017 Supervising Radiologist: Matt Reina Proceduralist/Assist: jordin sellers Estimated blood loss: none Anesthesia: Conscious Sedation Plan of Activity Patient to Unit: ROPU Patient Condition: Good See PACS Report for procedural detail/treatment Matt Reina MD Oct 04, 2017 13:30
[2017-10-04] MEDS ORDERED: SODIUM CHLORIDE 0.9% FLUSH 10 ML FLUSH IV FLUSH PRN (16:15)
--- NOTE | 2017-10-04 16:17 | RADRPT ---
EXAM DATE/TIME: 10/04/2017 12:42 [facility] COMPARISON: No previous studies available for comparison. INDICATIONS : Leukocystosis. SEDATION TIME: 30 minutes BIOPSY SITE: Right MEDICATION(S): 1.) 4 mg midazolam (Versed) IV 2.) 200 mcg fentanyl (Sublimaze) DEVICE(S): 1.) 11 gauge Bone marrow biopsy needle MEDICAL HISTORY : Cardiovascular disease. SURGICAL HISTORY : None. ENCOUNTER: Initial ACUITY: 1 day PAIN SCORE: 0/10 LOCATION: Right A total of one core specimen(s) were obtained and sent to the laboratory for pathologic evaluation. PROCEDURE: 1. CT guided bone marrow biopsy. 2. Conscious sedation with continuous EKG and oximetry monitoring. 3. EKG and oximetry remained stable throughout the procedure. Prior to the procedure informed consent was obtained. Any appropriate prior imaging studies were rev iewed. Using automated exposure control and adjustment of the mA and/or kV according to patient size , radiation dose was kept as low as reasonably achievable to obtain optimal diagnostic quality images . DICOM format image data is available electronically for review and comparison. The site was prepped in a sterile fashion. Full sterile technique was used, including cap, mask, zachery rile gloves and gown and a large sterile sheet. Hand hygiene and 2% chlorhexidine and/or betadine/al cohol prep was utilized per protocol for cutaneous antisepsis. The skin and subcutaneous tissues wer e infiltrated with local anesthetic solution. With CT guidance the previously identified target was localized. Biopsy was performed using the presc ribed needle as above. Following biopsy marrow aspiration was performed with repeat puncture. Adequa te hemostasis was obtained with compression at the puncture site. Follow-up CT scan reveals no hemorrhage. Conscious sedation was performed with the prescribed dosages and duration as above in the presence of an independent trained radiology nurse to assist in the monitoring of the patient. EKG and oximetry remained stable throughout the procedure. The patient tolerated the procedure well and there were no complications. The patient was sent to Radiology Outpatient Unit in stable condition. CONCLUSION: 1. Uncomplicated CT guided bone marrow aspirate. 2. Uncomplicated CT guided bone marrow biopsy. Matt Reina MD on October 04, 2017 at 16:14 Board Certified Radiologist. This report was verified electronically.
[2017-10-04] MEDS ORDERED: SODIUM CHLORIDE 2 ML FLUSH BID IV FLUSH SCH (21:00)
== END 2017-10-04 16:20 | disposition home or self-care (01) ==
LOC: HRAD 08:56 → HRIP 08:57 → HRAD 16:20
PROVIDERS: ATTEND Internal Medicine
DX: D47.1 Chronic myeloproliferative disease (principal); I25.10 Atherosclerotic heart disease of native coronary artery without angina pectoris; I48.91 Unspecified atrial fibrillation; D64.9 Anemia, unspecified; E83.111 Hemochromatosis due to repeated red blood cell transfusions; R16.1 Splenomegaly, not elsewhere classified
CPT/HCPCS: 38222; 77012; 81206; 81207; 81270; 85097; 88184; 88185; 88237; 88264; 88305; 88311; 88313; 99152; 99153; C1830; J1642; J2250; J3010; J7030